=== PATIENT | male | born 1940 | race Hispanic/Latino ===

== ENCOUNTER 2017-02-24 16:19 | Inpatient (IN) | payer MEDICARE ==
--- NOTE | 2017-02-24 16:57 | ED PDOC ---
HPI: Psych/Substance Abuse Time Seen by Provider: 02/24/17 16:33 Chief Complaint (Nursing): Psychiatric Evaluation Chief Complaint (Provider): Psychiatric Evaluation History Per: Patient, Family (nephew) History/Exam Limitations: no limitations Onset/Duration Of Symptoms: Days (x1) Suicide/Self Injury Attempted (Context): None Associated Symptoms: denies: Suicidal Thoughts Additional Complaint(s): Kevin Corbett is a 76 year old male, with no past medical history, who was brought to the emergency department by EMS for psychiatric evaluation. Nephew states that the patient has been noncompliant with his medications, and for the past couple of days he has been hearing voices and acting bizarre. Patient denies any suicidal or homicidal ideations. No further medical complaints. PMD: Melvin Curtis Past Medical History Reviewed: Historical Data, Nursing Documentation, Vital Signs Vital Signs: Last Vital Signs Temp 97.4 F L 02/24/17 16:21 Pulse 91 H 02/24/17 16:21 Resp 16 02/24/17 16:21 BP 147/88 02/24/17 16:21 Pulse Ox 97 02/24/17 16:21 - Family History Family History: States: Unknown Family Hx - Allergies Allergies/Adverse Reactions: Allergies Allergy/AdvReac Type Severity Reaction Status Date / Time No Known Allergies Allergy Verified 06/23/14 16:38 Review of Systems ROS Statement: Except As Marked, All Systems Reviewed And Found Negative Neurological: Positive for: Altered Mental Status Psych: Positive for: Other (hearing voices). Negative for: Suicidal ideation ( or homicidal ideation) Physical Exam - Reviewed Nursing Documentation Reviewed: Yes Vital Signs Reviewed: Yes - Physical Exam Appears: Positive for: Well, Non-toxic, No Acute Distress Head Exam: Positive for: ATRAUMATIC, NORMAL INSPECTION, NORMOCEPHALIC Skin: Positive for: Normal Color, Warm, Dry Eye Exam: Positive for: EOMI, Normal appearance, PERRL Neck: Positive for: Normal, Painless ROM, Supple Cardiovascular/Chest: Positive for: Regular Rate, Rhythm. Negative for: Murmur Respiratory: Positive for: Normal Breath Sounds. Negative for: Respiratory Distress Gastrointestinal/Abdominal: Positive for: Normal Exam, Bowel Sounds, Soft. Negative for: Tenderness, Guarding, Rebound Back: Positive for: Normal Inspection (No midline tenderness). Negative for: L CVA Tenderness, R CVA Tenderness Extremity: Positive for: Normal ROM. Negative for: Pedal Edema, Deformity, Swelling Neurologic/Psych: Positive for: Alert, Oriented (x3 ), Mood/Affect (calm and cooperative) - Laboratory Results Result Diagrams: 02/24/17 17:14 02/24/17 17:14 - ECG Interpretation Of ECG: SR @ 82, 1st degree AVB. O2 Sat by Pulse Oximetry: 97 (RA) Pulse Ox Interpretation: Normal Medical Decision Making Medical Decision Making: Initial Impression: Psychiatric evaluation Initial Plan: --EKG --Alcohol Serum --Comp Metabolic Panel --Drug Screen, Urine --Valproic Acid --Urine Dipstick --CBC w/ differential --Chest Portable [RAD] --Urinalysis --reevaluation 1808 Chest x-ray FINDINGS: LUNGS: No active pulmonary disease. PLEURA: Stable right apical pleural thickening. CARDIOVASCULAR: No radiographic findings to suggest acute or significant cardiovascular disease. OSSEOUS STRUCTURES: No significant abnormalities. VISUALIZED UPPER ABDOMEN: Normal. OTHER FINDINGS: None. IMPRESSION: No active disease. No significant interval change compared to the prior examination(s). MEDICAL CLEARANCE: Pt medically cleared for psychiatric admission. Scribe Attestation: Documented by Akin Davis, acting as a scribe for Caron Barnett MD Provider Scribe Attestation: All medical record entries made by the Scribe were at my direction and personally dictated by me. I have reviewed the chart and agree that the record accurately reflects my personal performance of the history, physical exam, medical decision making, and the department course for this patient. I have also personally directed, reviewed, and agree with the discharge instructions and disposition. Disposition - Disposition Forms: [employer] (Turkish)
[2017-02-24 17:28] LABS: BASO % 0.9 % (0.0-2.0); EOS # 0.1 K/uL (0.0-0.7); EOS % 2.1 % (0.0-4.0); HEMATOCRIT 37.3 % (35.0-51.0); LYMPH # 0.6 K/uL (1.0-4.3); LYMPH % 11.4 % (20.0-40.0); MEAN CELL VOLUME 91.1 fl (80.0-94.0); MEAN CORPUSCULAR HEMOGLOBIN 30.2 pg (27.0-31.0); MEAN CORPUSCULAR HGB CONC 33.1 g/dL (33.0-37.0); MEAN PLATELET VOLUME 8.3 fl (7.2-11.7); MONO # 0.7 K/uL (0.0-0.8); MONO % 14.7 % (0.0-10.0); NEUT # 3.6 K/uL (1.8-7.0); NEUT % 70.9 % (50.0-75.0); NRBC % 0.1 % (0.0-0.0); RED CELL DISTRIBUTION WIDTH 13.7 % (11.5-14.5); WHITE BLOOD COUNT 5.1 K/uL (4.8-10.8)
[2017-02-24 17:37] LABS: ALB/GLOB RATIO 1.4 (1.0-2.1); ALCOHOL SERUM < 10 mg/dl (0-10); ALKALINE PHOSPHATASE 71 U/L (38-126); ALT/SGPT 21 U/L (21-72); AST/SGOT 34 U/L (17-59); BILIRUBIN,TOTAL 0.6 mg/dl (0.2-1.3); BLOOD UREA NITROGEN 19 mg/dl (9-20); CALCIUM 8.7 mg/dL (8.4-10.2); CARBON DIOXIDE 26 mmol/L (22-30); CHLORIDE 98 mmol/L (98-107); GFR AFRICAN-AMERICAN > 60; GLUCOSE,RANDOM 109 mg/dL (75-110); POTASSIUM 4.3 MMOL/L (3.6-5.0); SODIUM 134 mmol/l (132-148); TOTAL PROTEIN 7.5 G/DL (6.3-8.2)
[2017-02-24 18:09] LABS: RBC URINE 2 /hpf (0-3); URINE BACTERIA RARE (<OCC); URINE BILIRUBIN NEGATIVE (NEGATIVE); URINE BLOOD NEGATIVE (NEGATIVE); URINE COLOR YELLOW (YELLOW); URINE GLUCOSE (UA) NEG (Normal); URINE KETONE TRACE mg/dL (NEGATIVE); URINE LEUKOCYTE ESTERASE NEG Leu/uL (Negative); URINE PROTEIN NEGATIVE (NEGATIVE); URINE UROBILINOGEN 0.2-1.0 mg/dL (0.2-1.0); WBC URINE 1 /hpf (0-5)
--- NOTE | 2017-02-24 18:18 | RAD ---
HISTORY: Medical clearance . Technique: Single view portable semi erect @ 17:50. COMPARISON: 06/23/2014 FINDINGS: LUNGS: No active pulmonary disease. PLEURA: Stable right apical pleural thickening. CARDIOVASCULAR: No radiographic findings to suggest acute or significant cardiovascular disease. OSSEOUS STRUCTURES: No significant abnormalities. VISUALIZED UPPER ABDOMEN: Normal. OTHER FINDINGS: None. IMPRESSION: No active disease. No significant interval change compared to the prior examination(s).
--- NOTE | 2017-02-24 19:30 | ED PDOC ---
- Laboratory Results Result Diagrams: 02/24/17 17:14 02/24/17 17:14 - ECG O2 Sat by Pulse Oximetry: 97 (RA) Medical Decision Making Medical Decision Makin Patient endorsed to me by Dr. Barnett. Pending crisis evaluation. [address] Curtis 2044 -As per crisis patient will be admitted to psychiatric, diagnosed with schizophrenia to Dr. Ashley, psychiatrist. Dr. Curtis made aware. Disposition - Clinical Impression Clinical Impression: Psychiatric complaint - POA Present On Arrival: None - Disposition Disposition: Admitted as In-Patient Disposition Time: 20:00 Condition: STABLE
[2017-02-24] MEDS ORDERED: Magnesium Hydroxide Susp 30 ml UD PO PRN (22:18)
[2017-02-24] MEDS ORDERED: Bismuth Subsalicylate 262 mg/15 ml Sus (240 ml) PO PRN (22:18)
[2017-02-24] MEDS ORDERED: Alum-Mag Hydrox-Simethicone Susp (30 mL) PO PRN (22:18)
--- NOTE | 2017-02-25 01:21 | PCM.BM ---
<YiAreli Laureen - Last Filed: 02/25/17 01:20> Treatment Plan Problems - Problems identified on initial assessmt Auditory hallucination Date Initiated: 02/24/17 Time Initiated: 23:00 Assessment reference: NA Status: Active Treatment assets and liabiliti Patient Assests: adapts well, cooperative, good support system, negotiates basic needs, cognitively intact Patient Liabilities: medical problems - Milieu Protocol Maintain good personal hygiene: daily Encourage regular showers, daily Remind patient to perform daily oral care, daily Assist patient to perform ADL's Conduct patient checks and document Observation sheet: Q15 minutes Maintain personal safety: every shift Educate patient to report safety concerns to staff, every shift Monitor environment for contraband/sharps Medication safety: Monitor for expected outcome, potential side effects: every shift, Assess barriers to learning: every shift, Assess readiness for medication education: every shift <Maria Eugenia Nichols - Last Filed: 02/25/17 11:05> - Diagnosis (1) Schizophrenia Status: Acute Interventions: Psychotherapy, Psychopharmacology, Psychoeducation 02/25/17 11:05 <Cayla Obrien - Last Filed: 02/28/17 16:09> Family Contact Family involvement: Family/SO is involved Family contact comment: Pt's nephewBrandon is involve din pt's care; however, correct numbr for nephew is needed. The number we have on file is out of service. - Outside Agency Dr. Kirsten MD Care involvment: Information-sharing Agency contact name: Dr. Kirsten MD Agency contact number: [phone] - Goals for Treatment Patient goals for treatment: Pt to be encouraged to attend activity and clinical groups 3-5x per week to decrease symptoms of paranoia, delusions and employ reality testing. Pt to be encouraged to participate in group milieu to develop coping skills to reduce psychiatric hospitalizations and further decompensation. Coordinate discharge resources needs by providing referral for psychiatric treatment follow up in the community. Discharge/Continuing Care - Education Needs Education Needs: Family Medication, Family Diagnosis/Disease Process, Family Coping Skills, Family Placement options, Family Community resources, Family Activities of Daily Living, Family Nutrition, Family Uses of Medical Equipment, Family Health Practices/Safety, Family Personal Hygiene/Grooming, Family Aftercare Safety Plan, Patient Medication, Patient Diagnosis/Disease Process, Patient Coping Skills, Patient Placement options, Patient Community resources, Patient Activities of Daily Living, Patient Nutrition, Patient Uses of Medical Equipment, Patient Health Practices/Safety, Patient Personal Hygiene/Grooming, Patient Aftercare Safety Plan - Discharge Discharge Criteria: Tolerates medication w/o severe side effects, Free of paranoid thoughts, Normal sleep pattern, Ability to care for self, Reduction of target symptoms Discharge to:: Home, Retirement Facility, With Family - Additional Comments 02/28/17 16:03 Pt seen and discussed in team meeting. Pt reported mood "day to day." Pt denied any recent hallucinations. Pt's social and medical issues discussed. Pt's medications reviewed. Pt reported having a personal aid that goes to the house 1x a week t help him bathe. pt reported he wishes to go back home with his nephew. Pt reported that his nephew owns the house and lives on the first floor and he lives on the second floor. Display Trimmer discussed the possibility of pt applying for Medicaid benefits and pt refused. Pt reported "I rather not. I don' t need it." Display Trimmer explained that with Medicaid he would have access to more resources and care. Pt continues to refuse. Display Trimmer will discuss Medicaid application with nephew prior to discharge. RN advised to obtain nephew's contact information if he visits this evening. Display Trimmer will continue to follow up. Pt verbalized agreement to treatment plan and recommendations. - Treatment Team Participation Discussed with Family/SO: No Was Patient/Family/SO present at Treatment Team Meeting: Yes
[2017-02-25 05:36] VITALS: O2SAT 97
[2017-02-25 07:29] LABS: CHOLESTEROL 118 mg/dL (0-199)
[2017-02-25 07:49] LABS: T4 6.85 ug/dl (5.5-11.0)
[2017-02-25 08:03] LABS: THYROID STIMULATING HORMONE 0.76 mIU/ML (0.46-4.68)
--- NOTE | 2017-02-25 08:12 | CARD ---
APPROVED REPORT EKG Measurement Heart [id number] <Conclusion> Sinus rhythm with 1st degree AV block Otherwise normal ECG
--- NOTE | 2017-02-25 10:38 | PCM.PSYCH ---
Initial Psychiatric Evaluation - Initial Psychiatric Evaluation Type of Admission: Voluntary Legal Status: Capacity Chief Complaint (in patient's own words): "I need my medications" Patient's Reaction to Hospitalization: HPI: 76 yo male w/ history of schizoaffective disorder, referred by his family for visual hallucinations and increased agitation. Patient is a poor historian and was unable to state which medications he takes. He denies current hallucinations, delusions, paranoia, but did report that he has heard voices in the past, but was unable to state when. Patient admitted to having visual hallucinations in the ER, but now denies this. NO SI/HI. Denies currently feeling depressed or anxious. As per family, patient has been non- compliant with medications. PMHx: Parkinson's Disease PMD: Melvin Curtis PPHx: Patient reports that he was first admitted for schizophrenia at age 22 and reports a total of 3 psychiatric admissions. History of outpatient treatment w/ Dr. England, not currently compliant. SHx: Finished 12th grade, reports that he did not work extensively due to his history of chronic mental illness. Denies illicit drug use and ETOH use. Current Medications: Active Medications Generic Name Dose Route Start Last Admin Trade Name Freq PRN Reason Stop Dose Admin Acetaminophen 650 mg 02/24/17 22:18 Tylenol 325mg Tab PO Q4 PRN Pain, moderate (4-7) Al Hydrox/Mg Hydrox/Simethicone 30 ml 02/24/17 22:18 Maalox Plus 30 Ml PO Q4 PRN Dyspepsia Aspirin 81 mg 02/25/17 09:00 02/25/17 08:52 Aspirin Chewable PO 81 mg DAILY PETE Administration Atorvastatin Calcium 10 mg 02/25/17 09:00 02/25/17 08:51 Lipitor PO 10 mg DAILY PETE Administration Bismuth Subsalicylate 524 mg 02/24/17 22:18 Pepto-Bismol PO Q4 PRN Diarrhea Carbidopa/Levodopa 1 tab 02/25/17 09:00 02/25/17 08:51 Sinemet PO 1 tab TID PETE Administration Famotidine 20 mg 02/25/17 09:00 02/25/17 08:51 Pepcid PO 20 mg DAILY PETE Administration Lorazepam 0.5 mg 02/24/17 22:18 Ativan PO 03/10/17 22:19 HS PRN Insomnia Lorazepam 0.5 mg 02/24/17 22:18 Ativan PO 03/10/17 22:19 Q6 PRN Anixety/Agitation Magnesium Hydroxide 30 ml 02/24/17 22:18 Milk Of Magnesia PO HS PRN Constipation Past Psychiatric History - Past Psychiatric History Previous Treatment History: Inpatient Pertinent Medical Hx (Current Medical&Sleep Prob, Allergies): Allergies Allergy/AdvReac Type Severity Reaction Status Date / Time No Known Allergies Allergy Verified 06/23/14 16:38 Aspirin [Aspirin Chewable] 81 mg PO DAILY 02/24/17 Atorvastatin [Lipitor] 10 mg PO DAILY 02/24/17 Carbidopa/Levodopa [Carbidopa-Levodopa 25-100 Tab] 1 tab PO TID 02/24/17 Citalopram Hydrobromide [Citalopram HBr] 10 mg PO DAILY 02/24/17 Divalproex Sodium [Divalproex Sodium ER] 125 mg PO BID 02/24/17 Famotidine [Pepcid] 20 mg PO DAILY 02/24/17 Review of Systems - Psychiatric Psychiatric: As Per HPI, Auditory Hallucinations, Behavioral Changes, Hallucinations, Irritability, Memory Loss, Visual Hallucinations Mental Status Examination - Personal Presentation Personal Presentation: Looks stated age - Affect Affect: Constricted - Motor Activity Motor Activity: Calm - Reliability in Providing Information Reliability in Providing Information: Other (Poor due to alteration in thoughts and/or cognitive impairment) - Speech Speech: Coherent - Mood Mood: Anxious - Formal Thought Process Formal Thought Process: Loosening of associations - Hallucinations/Delusions Additional comments: Denies current AH/VH, but as per chart, patient reported VH to ER and AH to family - Obsessions/Compulsions Obsessions: No Compulsions: No - Cognitive Functions Orientation: Person, Place, Situation, Time Sensorium: Alert Judgement: Intact, as evidence by: Insight regarding need for hospitalization Memory: Recent imparied as evidence by:Inability to complete 3/3 object recall, Remote impaired as evidenced by: Inability to recall sig life events, Remote impaired as evidenced by: Inability to recall historical events - Risk Risk: Diminished functioning - Strength & Assets Inventory Strength & Assets Inventory: Cooperative - Limitations Limitations: Decreased memory, recent DSM 5 DX - DSM 5 DSM 5 Diagnosis: Schizophrenia; r/o dementia w/ behavioral disturbances - Recommended/Plan of Treatment Treatment Recommendations and Plan of Treatment: Schizophrenia; r/o dementia w/ behavioral disturbances; patient presents acutely decompensated in the context of non-compliance w/ medications -Admit to geriatric psychiatry unit -Individual and group therapy -Obtain collateral history from family -Medicine consult appreciated -Restart Depakote 125 mg PO BID, patient was non-complaint at home -Will consider starting Seroquel, pending Cardiology consult -Disposition planning Projected ELOS: 5-7 days Discharge Plan and Discharge Criteria: Discharge when psychiatrically stable - Smoking Cessation Smoking Cessation Initiated: No Reason for not providing: Not indicated
[2017-02-25 12:14] LABS: VITAMIN D 25 OH TOTAL 28.5 NG/ML (30.0-100.0)
[2017-02-25 13:04] LABS: FOLATE > 20.0 ng/mL
--- NOTE | 2017-02-25 14:31 | CP.PCM.CON ---
History of Present Illness - History of Present Illness History of Present Illness: Internal Medicine Consult 76 y/o M, Hx of HTN, Hyperlipidemia, E Reflux, Parkinson's ,Schizophrenia brought by EMS to [facility] to be evaluated for behavioral changes, onset day [employer] with no relief. After evaluation, PT was admitted to Psychiatric unit. As per Nephew, He found Pt acting bizarre while at home associated to agitation and allucinations, hearing voices telling him you are going to . Pt denied SI ,HI. Worsening symptom: Dementia. Aggravated factor: Poor historian, no compliance with medications. Denied: SI, HI. No: Fever, chills, n/v/d, abdominal pain, CP, palpitation, SOB , cough, sick contact, recent travel. EKG: Sinus rhythm with 1st degree of AV block. Review of Systems - Review of Systems Systems not reviewed;Unavailable: Acuity of Condition, Altered Mental Status Past Patient History - Infectious Disease Hx of Infectious Diseases: None - Past Medical History & Family History Pertinent Family History: Unknown - Past Social History Smoking Status: Never Smoked Alcohol: None Drugs: Denies Home Situation {Lives}: Alone - CARDIAC Hx Cardiac Disorders: Yes Hx Hypertension: Yes - PULMONARY Hx Respiratory Disorders: No - NEUROLOGICAL Hx Neurological Disorder: Yes Hx Parkinson's Disease: Yes - HEENT Hx HEENT Problems: Yes Other/Comment: uses bifocal glasses - RENAL Hx Chronic Kidney Disease: No - ENDOCRINE/METABOLIC Hx Endocrine Disorders: No - HEMATOLOGICAL/ONCOLOGICAL Hx Blood Disorders: No - INTEGUMENTARY Hx Dermatological Problems: No - MUSCULOSKELETAL/RHEUMATOLOGICAL Hx Musculoskeletal Disorders: Yes Hx Falls: Yes - GASTROINTESTINAL Hx Gastrointestinal Disorders: Yes Hx Gastroesophageal Reflux: Yes - GENITOURINARY/GYNECOLOGICAL Hx Genitourinary Disorders: Yes Other/Comment: swollen scrotum - PSYCHIATRIC Hx Psychophysiologic Disorder: Yes Hx Depression: Yes Hx Schizophrenia: Yes Hx Substance Use: No - SURGICAL HISTORY Hx Surgeries: No - ANESTHESIA Hx Anesthesia: No Meds Home Medications: Home Medication List Medication Instructions Recorded Confirmed Type Aspirin [Aspirin Chewable] 81 mg PO DAILY #30 chew 03/01/17 Rx Atorvastatin [Lipitor] 10 mg PO DAILY #30 tab 03/01/17 Rx Carbidopa/Levodopa 1 tab PO TID #90 tablet 03/01/17 Rx [Carbidopa-Levodopa 25-100 Tab] Divalproex [Depakote DR(*BID*)] 125 mg PO BID #60 tcp 03/01/17 Rx Famotidine [Pepcid] 20 mg PO DAILY #30 tab 03/01/17 Rx QUEtiapine [Seroquel] 25 mg PO HS #30 tab 03/01/17 Rx Allergies/Adverse Reactions: Allergies Allergy/AdvReac Type Severity Reaction Status Date / Time No Known Allergies Allergy Verified 06/23/14 16:38 - Medications Medications: Current Medications Acetaminophen (Tylenol 325mg Tab) 650 mg PO Q4 PRN PRN Reason: Pain, moderate (4-7) Al Hydrox/Mg Hydrox/Simethicone (Maalox Plus 30 Ml) 30 ml PO Q4 PRN PRN Reason: Dyspepsia Aspirin (Aspirin Chewable) 81 mg PO DAILY [facility] Last Admin: 02/25/17 08:52 Dose: 81 mg Atorvastatin Calcium (Lipitor) 10 mg PO DAILY [facility] Last Admin: 02/25/17 08:51 Dose: 10 mg Bismuth Subsalicylate (Pepto-Bismol) 524 mg PO Q4 PRN PRN Reason: Diarrhea Carbidopa/Levodopa (Sinemet) 1 tab PO TID [facility] Last Admin: 02/25/17 13:03 Dose: 1 tab Famotidine (Pepcid) 20 mg PO DAILY [facility] Last Admin: 02/25/17 08:51 Dose: 20 mg Lorazepam (Ativan) 0.5 mg PO HS PRN PRN Reason: Insomnia Stop: 03/10/17 22:19 Lorazepam (Ativan) 0.5 mg PO Q6 PRN PRN Reason: Anixety/Agitation Stop: 03/10/17 22:19 Magnesium Hydroxide (Milk Of Magnesia) 30 ml PO HS PRN PRN Reason: Constipation Physical Exam - Constitutional Appears: Chronically Ill - Head Exam Head Exam: NORMAL INSPECTION - Eye Exam Eye Exam: PERRL - ENT Exam ENT Exam: Normal Exam - Neck Exam Neck exam: Positive for: Normal Inspection - Respiratory Exam Respiratory Exam: Clear to Auscultation Bilateral - Cardiovascular Exam Cardiovascular Exam: REGULAR RHYTHM - GI/Abdominal Exam GI & Abdominal Exam: Normal Bowel Sounds, Soft - Extremities Exam Extremities exam: Positive for: normal inspection - Back Exam Additional comments: kyphosis - Neurological Exam Additional comments: Confused, forgetful, follows commands , no focal motor / sensory deficit , weakness L/E - Psychiatric Exam Additional comments: Calm now - Skin Skin Exam: Warm Results - Vital Signs Recent Vital Signs: Last Vital Signs Temp 98.1 F 02/25/17 05:48 Pulse 76 02/25/17 05:48 Resp 18 02/25/17 05:48 BP 146/76 02/25/17 05:48 Pulse Ox 97 02/25/17 05:36 reviewed Merary - Labs Result Diagrams: 02/24/17 17:14 02/24/17 17:14 Labs: Laboratory Results - last 24 hr 02/24/17 02/24/17 02/24/17 17:14 17:14 17:14 WBC 5.1 RBC 4.09 L Hgb 12.3 Hct 37.3 MCV 91.1 MCH 30.2 MCHC 33.1 RDW 13.7 Plt Count 203 MPV 8.3 Neut % (Auto) 70.9 Lymph % (Auto) 11.4 L [place] % (Auto) 14.7 H Eos % (Auto) 2.1 Baso % (Auto) 0.9 Neut # 3.6 Lymph # 0.6 L [place] # 0.7 Eos # 0.1 Baso # 0.0 Sodium 134 Potassium 4.3 Chloride 98 Carbon Dioxide 26 Anion Gap 14 BUN 19 Creatinine 1.0 Est GFR ( Amer) > 60 Est GFR (Non-Af Amer) > 60 Random Glucose 109 Hemoglobin A1c Calcium 8.7 Iron TIBC % Saturation Ferritin Total Bilirubin 0.6 AST 34 ALT 21 D Alkaline Phosphatase 71 Total Protein 7.5 Albumin 4.4 Globulin 3.1 Albumin/Globulin Ratio 1.4 Triglycerides Cholesterol LDL Cholesterol Direct HDL Cholesterol Vitamin B12 25-OH Vitamin D Total Folate Free T4 Thyroxine (T4) TSH 3rd Generation Urine Color Urine Clarity Urine pH Ur Specific [place] Urine Protein Urine Glucose (UA) Urine Ketones Urine Blood Urine Nitrate Urine Bilirubin Urine Urobilinogen Ur Leukocyte Esterase Urine RBC (Auto) Urine Microscopic WBC Urine Bacteria Urine Opiates Screen Urine Methadone Screen Ur Barbiturates Screen Valproic Acid 24.6 L Ur Phencyclidine Scrn Ur Amphetamines Screen U Benzodiazepines Scrn U Oth Cocaine Metabols U Cannabinoids Screen Alcohol, Quantitative < 10 02/24/17 02/24/17 02/25/17 17:50 19:44 06:10 WBC RBC Hgb Hct MCV MCH MCHC RDW Plt Count MPV Neut % (Auto) Lymph % (Auto) [place] % (Auto) Eos % (Auto) Baso % (Auto) Neut # Lymph # [place] # Eos # Baso # Sodium Potassium Chloride Carbon Dioxide Anion Gap BUN Creatinine Est GFR ( Amer) Est GFR (Non-Af Amer) Random Glucose Hemoglobin A1c Calcium Iron TIBC % Saturation Ferritin 33.7 Total Bilirubin AST ALT Alkaline Phosphatase Total Protein Albumin Globulin Albumin/Globulin Ratio Triglycerides 46 Cholesterol 118 LDL Cholesterol Direct 44 HDL Cholesterol 55 Vitamin B12 789 25-OH Vitamin D Total Folate > 20.0 Free T4 Thyroxine (T4) 6.85 TSH 3rd Generation 0.76 Urine Color Yellow Urine Clarity Slighty-cloudy Urine pH 6.0 Ur Specific [place] 1.014 Urine Protein Negative Urine Glucose (UA) Neg Urine Ketones Trace Urine Blood Negative Urine Nitrate Negative Urine Bilirubin Negative Urine Urobilinogen 0.2-1.0 Ur Leukocyte Esterase Neg Urine RBC (Auto) 2 Urine Microscopic WBC 1 Urine Bacteria Rare Urine Opiates Screen Negative Urine Methadone Screen Negative Ur Barbiturates Screen Negative Valproic Acid Ur Phencyclidine Scrn Negative Ur Amphetamines Screen Negative U Benzodiazepines Scrn Negative U Oth Cocaine Metabols Negative U Cannabinoids Screen Negative Alcohol, Quantitative 02/25/17 02/25/17 02/25/17 06:10 06:10 06:10 WBC RBC Hgb Hct MCV MCH MCHC RDW Plt Count MPV Neut % (Auto) Lymph % (Auto) [place] % (Auto) Eos % (Auto) Baso % (Auto) Neut # Lymph # [place] # Eos # Baso # Sodium Potassium Chloride Carbon Dioxide Anion Gap BUN Creatinine Est GFR ( Amer) Est GFR (Non-Af Amer) Random Glucose Hemoglobin A1c 5.4 Calcium Iron 89 TIBC 335 % Saturation 27 Ferritin Total Bilirubin AST ALT Alkaline Phosphatase Total Protein Albumin Globulin Albumin/Globulin Ratio Triglycerides Cholesterol LDL Cholesterol Direct HDL Cholesterol Vitamin B12 25-OH Vitamin D Total 28.5 L Folate Free T4 0.79 Thyroxine (T4) TSH 3rd Generation Urine Color Urine Clarity Urine pH Ur Specific [place] Urine Protein Urine Glucose (UA) Urine Ketones Urine Blood Urine Nitrate Urine Bilirubin Urine Urobilinogen Ur Leukocyte Esterase Urine RBC (Auto) Urine Microscopic WBC Urine Bacteria Urine Opiates Screen Urine Methadone Screen Ur Barbiturates Screen Valproic Acid Ur Phencyclidine Scrn Ur Amphetamines Screen U Benzodiazepines Scrn U Oth Cocaine Metabols U Cannabinoids Screen Alcohol, Quantitative reviewed J.P. - EKG Data EKG comments: reviewed J.P. - Imaging and Cardiology Chest x-ray Status: Report reviewed by me (Merary) Assessment & Plan (1) Heart block AV first degree Status: Acute (2) Hyperlipidemia Status: Chronic Priority: Low (3) HTN (hypertension) Status: Chronic Priority: Medium (4) Esophageal reflux Status: Chronic Priority: Medium (5) High cholesterol Status: Chronic (6) Parkinson disease Status: Chronic - Assessment and Plan (Free Text) Plan: Pt [id number] degree AV block, will get Echo and Cardiology consult for starting in Soroquel, monitor BP. Continue Lipitor, Pepcid and rest of Tx. PT.OT - Date & Time Date: 02/25/17
[2017-02-25] MEDS ORDERED: Divalproex 250 mg ER (ONCE DAILY formulation) PO ONE (17:00)
[2017-02-26] MEDS: Divalproex 125 mg DR (BID formulation) PO SCH ×2 (08:45→16:22)
--- NOTE | 2017-02-26 10:53 | PCM.PYCHPN ---
Psychiatric Progress Note - Psychiatric Progress Note Patient seen today, length of contact: Patient evaluated, case discussed with team, chart reviewed, 35 min Patient Chief Complaint: "I'm okay" Problems Identified/Issues Discussed: Patient currently calm, cooperative, sitting quietly in his chair. Patient encouraged to participate in groups and activities. No periods of agitation or aggression. He is denying current AH/VH. Medication Change: No Medical Record Reviewed: Yes Consults ordered or reviewed: Medicine consult appreciated, Cardiology consult pending Mental Status Examination - Cognitive Function Orientation: Person, Place, Situation, Time Memory: Impaired Decription of patient's judgement and insights: Limited I/J - Mood Mood: Anxious - Affect Affect: Constricted - Speech Speech: Appropriate - Formal Thought Process Formal Thought Process: Loosening of associations Psychotic Thoughts and Behaviors: Denies current AH/VH/paranoia - Suicidal Ideation Suicidal Ideation: No - Homicidal Ideation Homicidal Ideation: No Goal/Treatment Plan - Goal/Treatment Plan Need for Continued Stay: Remain at risks for inpatient hospitalization, Severe functional impairment Progress Toward Problem(s) and Goals/Treatment Plan: Schizophrenia; r/o dementia w/ behavioral disturbances; patient presents acutely decompensated in the context of non-compliance w/ medications -Individual and group therapy -Obtain collateral history from family -Medicine consult appreciated -Continue Depakote 125 mg PO BID -Will consider starting Seroquel, pending Cardiology consult -Disposition planning Estimated Date of D/C: 03/02/17 - Smoking Cessation Smoking Cessation Initiated: No Reason for not providing: Not indicated
--- NOTE | 2017-02-26 14:16 | CP.PCM.PN ---
Subjective - Date & Time of Evaluation Date of Evaluation: 02/26/17 Time of Evaluation: 13:30 - Subjective Subjective: F/U Medical consult. No A/D, Pt forgetful Objective - Vital Signs/Intake and Output Vital Signs (last 24 hours): Temp Pulse Resp BP Pulse Ox 97.1 F L 72 20 144/78 97 02/26/17 06:00 02/26/17 06:00 02/26/17 06:00 02/26/17 06:00 02/25/17 05:36 - Medications Medications: Current Medications Acetaminophen (Tylenol 325mg Tab) 650 mg PO Q4 PRN PRN Reason: Pain, moderate (4-7) Al Hydrox/Mg Hydrox/Simethicone (Maalox Plus 30 Ml) 30 ml PO Q4 PRN PRN Reason: Dyspepsia Aspirin (Aspirin Chewable) 81 mg PO DAILY [facility] Last Admin: 02/26/17 08:45 Dose: 81 mg Atorvastatin Calcium (Lipitor) 10 mg PO DAILY [facility] Last Admin: 02/26/17 08:45 Dose: 10 mg Bismuth Subsalicylate (Pepto-Bismol) 524 mg PO Q4 PRN PRN Reason: Diarrhea Carbidopa/Levodopa (Sinemet) 1 tab PO TID [facility] Last Admin: 02/26/17 08:45 Dose: 1 tab Divalproex Sodium (Depakote Dr(*Bid*)) 125 mg PO BID [facility] Last Admin: 02/26/17 08:45 Dose: 125 mg Famotidine (Pepcid) 20 mg PO DAILY [facility] Last Admin: 02/26/17 08:45 Dose: 20 mg Lorazepam (Ativan) 0.5 mg PO HS PRN PRN Reason: Insomnia Stop: 03/10/17 22:19 Lorazepam (Ativan) 0.5 mg PO Q6 PRN PRN Reason: Anixety/Agitation Stop: 03/10/17 22:19 Magnesium Hydroxide (Milk Of Magnesia) 30 ml PO HS PRN PRN Reason: Constipation - Labs Labs: 02/24/17 17:14 02/24/17 17:14 - Constitutional Appears: No Acute Distress, Chronically Ill - Head Exam Head Exam: NORMAL INSPECTION - Eye Exam Eye Exam: PERRL - ENT Exam ENT Exam: Normal Exam - Neck Exam Neck Exam: Normal Inspection - Respiratory Exam Respiratory Exam: Clear to Ausculation Bilateral - Cardiovascular Exam Cardiovascular Exam: REGULAR RHYTHM - Extremities Exam Extremities Exam: Normal Inspection - Back Exam Additional comments: Kyphosis - Neurological Exam Neurological Exam: Awake (cofuse, forgetful, follows commands.) Additional comments: No focal motor/ sensory deficit, weakness L/E. - Psychiatric Exam Additional comments: Calm. - Skin Skin Exam: Warm Assessment and Plan (1) Hyperlipidemia Status: Chronic (2) Esophageal reflux Status: Chronic (3) HTN (hypertension) Status: Chronic (4) Heart block AV first degree Status: Acute (5) Parkinson disease Status: Chronic (6) GERD (gastroesophageal reflux disease) Status: Chronic - Assessment and Plan (Free Text) Plan: HTN controlled, f/u Cardiology consult
--- NOTE | 2017-02-26 14:19 | CP.PCM.CON ---
History of Present Illness - History of Present Illness History of Present Illness: PT DENIES CP, SOB, PALP, DIZZINESS, SYNCOPE. NO HX OF TN OR ARRYTHMIAS. PT HAS A 1ST DEGREE HEART BLOCK ON ECG AND IS SCHEDULED FOR ANTIPSYCHOTIC THERAPY. CONSULT PLACED TO EVAL 1ST DEGREE HB AND CONTRAINDICATION FOR THERAPY. Review of Systems - Constitutional Constitutional: As Per HPI. absent: Anorexia, Chills, Daytime Sleepiness, Excessive Sweating, Fatigue, Fever, Frequent Falls, Headache, Increased Appetite , Lethargy, Malaise, Night Sweats, Snoring, Sleep Apnea, Weight Gain, Weight Loss, Weakness, Other - EENT Eyes: As Per HPI. absent: Blind Spots, Blurred Vision, Change in Vision, Decreased Night Vision, Diplopia, Discharge, Dry Eye, Exophthalmos, Floaters, Irritation, Itchy Eyes, Loss of Peripheral Vision, Pain, Photophobia, Requires Corrective Lenses, Sees Flashes, Spots in Vision, Tunnel Vision, Other Visual Disturbances, Loss of Vision, Other Ears: As Per HPI. absent: Decreased Hearing, Ear Discharge, Ear Pain, Tinnitus , Abnormal Hearing, Disequilibrium, Dizziness, Other Nose/Mouth/Throat: As Per HPI. absent: Epistaxis, Nasal Congestion, Nasal Discharge, Nasal Obstruction, Nasal Trauma, Nose Pain, Post Nasal Drip, Sinus Pain, Sinus Pressure, Bleeding Gums, Change in Voice, Dental Pain, Dry Mouth, Dysphagia, Halitosis, Hoarsness, Lip Swelling, Mouth Lesions, Mouth Pain, Odynophagia, Sore Throat, Throat Swelling, Tongue Swelling, Facial Pain, Neck Pain, Neck Mass, Other - Cardiovascular Cardiovascular: As Per HPI. absent: Acrocyanosis, Chest Pain, Chest Pain at Rest, Chest Pain with Activity, Claudication, Diaphoresis, Dyspnea, Dyspnea on Exertion, Edema, Irregular Heart Rhythm, Pain Radiating to Arm/Neck/Jaw, Leg Edema, Leg Ulcers, Lightheadedness, Orthopnea, Palpitations, Paroxysmal Nocturnal Dyspnea, Pedal Edema, Radiating Pain, Rapid Heart Rate, Slow Heart Rate, Syncope, Other - Respiratory Respiratory: As Per HPI. absent: Cough, Dyspnea, Hemoptysis, Dyspnea on Exertion, Wheezing, Snoring, Stridor, Pain on Inspiration, Chest Congestion, Excessive Mucous Production, Change in Mucous Color, Pain with Coughing, Other - Gastrointestinal Gastrointestinal: As Per HPI. absent: Abdominal Pain, Belching, Bloating, Change in Bowel Habits, Change in Stool Character, Coffee Ground Emesis, Constipation, Cramping, Diarrhea, Dyspepsia, Dysphagia, Early Satiety, Excessive Flatus, Fecal Incontinence, Heartburn, Hematemesis, Hematochezia, Loose Stools, Melena, Nausea, Odynophagia, Temesmus, Vomiting, Other - Genitourinary Genitourinary: As Per HPI. absent: Change in Urinary Stream, Difficulty Urinating, Dysuria, Flank Pain, Hematuria, Pyuria, Nocturia, Urinary Incontinence, Urinary Frequency, Urinary Hesitance, Urinary Urgency, Voiding Freq/Small Amts, Freq UTI, Hx Renal/Bladder Calculi, Hx /Renal Surgery, Bladder Distension, Other - Reproductive: Male Reproductive:Male: As Per HPI - Musculoskeletal Musculoskeletal: As Per HPI. absent: Abnormal Gait, Arthralgias, Atrophy, Back Pain, Deformity, Joint Swelling, Limited Range of Motion, Loss of Height, Muscle Cramps, Muscle Weakness, Myalgias, Neck Pain, Numbness, Radiating Pain into Limb, Stiffness, Tingling, Other - Integumentary Integumentary: As Per HPI. absent: Acne, Alopecia, Bleeding Lesions, Change in Hair, Change in Nails, Change in Pigmentation, Changing Lesions, Dry Skin, Erythema, Furuncle, Hirsutism, Lesions, New Lesions, Non-Healing Lesions, Photosensitivity, Pruritus, Rash, Skin Pain, Skin Ulcer, Sores, Striae, Swelling , Unusual Bruising, Wounds, Jaundice, Other - Neurological Neurological: As Per HPI. absent: Abnormal Gait, Abnormal Hearing, Abnormal Movements, Abnormal Speech, Behavioral Changes, Burning Sensations, Confusion, Convulsions, Disequilibrium, Dizziness, Numbness, Focal Weakness, Frequent Falls , Headaches, Lack of Coordination, Loss of Vision, Memory Loss, Paresthesias, Radicular Pain, Restless Legs, Sensory Deficit, Syncope, Tingling, Tremor, Vertigo, Weakness, Other Visual Disturbances, Other - Psychiatric Psychiatric: As Per HPI, Behavioral Changes - Endocrine Endocrine: As Per HPI. absent: Change in Body Appearance, Change in Libido, Cold Intolorance, Deepening of Voice, Excessive Sweating, Fatigue, Flushing, Heat Intolorance, Increase in Ring/Shoe/Hat Size, Palpitations, Polydipsia, Polyphagia, Polyuria, Other - Hematologic/Lymphatic Hematologic: As Per HPI. absent: Easy Bleeding, Easy Bruising, Lymphadenopathy , Other Past Patient History - Infectious Disease Hx of Infectious Diseases: None - Tetanus Immunizations Tetanus Immunization: Up to Date - Past Medical History & Family History Past Medical History?: Yes Past Family History: Reviewed and not pertinent - Past Social History Smoking Status: Never Smoked Alcohol: None Drugs: Denies Home Situation {Lives}: Alone - CARDIAC Hx Cardiac Disorders: Yes Hx Hypertension: Yes - PULMONARY Hx Respiratory Disorders: No - NEUROLOGICAL Hx Neurological Disorder: Yes Hx Parkinson's Disease: Yes - HEENT Hx HEENT Problems: Yes Other/Comment: uses bifocal glasses - RENAL Hx Chronic Kidney Disease: No - ENDOCRINE/METABOLIC Hx Endocrine Disorders: No - HEMATOLOGICAL/ONCOLOGICAL Hx Blood Disorders: No - INTEGUMENTARY Hx Dermatological Problems: No - MUSCULOSKELETAL/RHEUMATOLOGICAL Hx Musculoskeletal Disorders: Yes Hx Falls: Yes - GASTROINTESTINAL Hx Gastrointestinal Disorders: Yes Hx Gastroesophageal Reflux: Yes - GENITOURINARY/GYNECOLOGICAL Hx Genitourinary Disorders: Yes Other/Comment: swollen scrotum - PSYCHIATRIC Hx Psychophysiologic Disorder: Yes Hx Depression: Yes Hx Schizophrenia: Yes Hx Substance Use: No - SURGICAL HISTORY Hx Surgeries: No - ANESTHESIA Hx Anesthesia: No Meds Allergies/Adverse Reactions: Allergies Allergy/AdvReac Type Severity Reaction Status Date / Time No Known Allergies Allergy Verified 06/23/14 16:38 - Medications Medications: Current Medications Acetaminophen (Tylenol 325mg Tab) 650 mg PO Q4 PRN PRN Reason: Pain, moderate (4-7) Al Hydrox/Mg Hydrox/Simethicone (Maalox Plus 30 Ml) 30 ml PO Q4 PRN PRN Reason: Dyspepsia Aspirin (Aspirin Chewable) 81 mg PO DAILY [facility] [place] Last Admin: 02/26/17 08:45 Dose: 81 mg Atorvastatin Calcium (Lipitor) 10 mg PO DAILY [facility] [place] Last Admin: 02/26/17 08:45 Dose: 10 mg Bismuth Subsalicylate (Pepto-Bismol) 524 mg PO Q4 PRN PRN Reason: Diarrhea Carbidopa/Levodopa (Sinemet) 1 tab PO TID [facility] [place] Last Admin: 02/26/17 08:45 Dose: 1 tab Divalproex Sodium (Depakote Dr(*Bid*)) 125 mg PO BID [facility] [place] Last Admin: 02/26/17 08:45 Dose: 125 mg Famotidine (Pepcid) 20 mg PO DAILY [facility] Last Admin: 02/26/17 08:45 Dose: 20 mg Lorazepam (Ativan) 0.5 mg PO HS PRN PRN Reason: Insomnia Stop: 03/10/17 22:19 Lorazepam (Ativan) 0.5 mg PO Q6 PRN PRN Reason: Anixety/Agitation Stop: 03/10/17 22:19 Magnesium Hydroxide (Milk Of Magnesia) 30 ml PO HS PRN PRN Reason: Constipation Physical Exam - Constitutional Appears: Non-toxic - Head Exam Head Exam: ATRAUMATIC, NORMAL INSPECTION, NORMOCEPHALIC - Eye Exam Eye Exam: EOMI, Normal appearance, PERRL. absent: Conjunctival injection, Nystagmus, Periorbital swelling, Periorbital tenderness, Scleral icterus Pupil Exam: NORMAL ACCOMODATION, PERRL. absent: Fixed, Irregular, Miosis, Mydriatic, Unequal - ENT Exam ENT Exam: Mucous Membranes Moist, Normal Exam. absent: Mucous Membranes Dry, Normal External Ear Exam, Normal Oropharynx, TM's Normal Bilaterally - Neck Exam Neck exam: Positive for: Normal Inspection. Negative for: Full Rom, Lymphadenopathy, Meningismus, Tenderness, Thyromegaly - Respiratory Exam Respiratory Exam: Clear to Auscultation Bilateral, NORMAL BREATHING PATTERN. absent: Accessory Muscle Use, Chest Wall Tenderness, Decreased Breath Sounds, Prolonged Expiratory Phase, Rales, Rhonchi, Wheezes, Respiratory Distress, Stridor - Cardiovascular Exam Cardiovascular Exam: REGULAR RHYTHM, +S1, +S2, Systolic Murmur. absent: Bradycardia, Tachycardia, Clicks, Diastolic murmur, Gallop, Irregular Rhythm, JVD, RRR, Rubs, +S4 - GI/Abdominal Exam GI & Abdominal Exam: Normal Bowel Sounds, Soft. absent: Bruit, Diminished Bowel Sounds, Distended, Firm, Guarding, Hernia, Hyperactive Bowel Sounds, Hypoactive Bowel Sounds, Mass, Organomegaly, Pulsatile Mass, Rebound, Rigid, Tenderness - Rectal Exam Rectal Exam: Deferred - Extremities Exam Extremities exam: Positive for: normal inspection. Negative for: calf tenderness, full ROM, joint swelling, normal capillary refill, pedal edema, tenderness, pedal pulses present - Back Exam Back exam: NORMAL INSPECTION. absent: CVA tenderness (L), CVA tenderness (R), FULL ROM, muscle spasm, paraspinal tenderness, rash noted, tenderness, vertebral tenderness - Neurological Exam Neurological exam: Alert, CN II-XII Intact, Normal Gait, Oriented x3, Reflexes Normal - Skin Skin Exam: Dry, Intact, Normal Color, Warm Results - Vital Signs Recent Vital Signs: Last Vital Signs Temp 97.1 F L 02/26/17 06:00 Pulse 72 02/26/17 06:00 Resp 20 02/26/17 06:00 BP 144/78 02/26/17 06:00 Pulse Ox 97 02/25/17 05:36 - Labs Result Diagrams: 02/24/17 17:14 02/24/17 17:14 Labs: Laboratory Results - last 24 hr 02/25/17 06:10 RPR Nonreactive - EKG Data EKG Interpreted by: Myself EKG shows normal: Sinus rhythm, Intervals Rate: Normal - EKG Data Interpretation: Other EKG comments: 1ST DEGREE HEART BLOCK Assessment & Plan (1) Heart block AV first degree Status: Acute (2) Psychiatric complaint Status: Acute (3) Esophageal reflux Status: Chronic Priority: Medium (4) HTN (hypertension) Status: Chronic Priority: Medium (5) Hyperlipidemia Status: Chronic Priority: Low - Assessment and Plan (Free Text) Plan: PTS 1ST DEGREE HEART BLOCK IS NOT A CONTRAINDICATION TO ANTIPSYCHOTIC MEDS. MAY START MEDICATIONS. MONITOR ECG QWEEKLY. ECHO DONE AND PENDING. WILL SIGN OFF. THANK YOU. FEEL FREE TO CALL WITH ANY QUESTIONS.
--- NOTE | 2017-02-27 08:13 | PCM.PYCHPN ---
Psychiatric Progress Note - Psychiatric Progress Note Patient seen today, length of contact: Patient evaluated, case discussed with team, chart reviewed, 35 min Patient Chief Complaint: "I'm okay" Problems Identified/Issues Discussed: Patient currently calm, cooperative. No periods of agitation or aggression. He is denying current AH/VH, but reports that sometimes he hears people talking , but is not sure if they are staff talking in the hallway. Medication Change: No Medical Record Reviewed: Yes Consults ordered or reviewed: Medicine consult appreciated, Cardiology consult pending Mental Status Examination - Cognitive Function Orientation: Person, Place, Situation Memory: Impaired Decription of patient's judgement and insights: Limited I/J - Mood Mood: Anxious - Affect Affect: Constricted - Speech Speech: Appropriate - Formal Thought Process Formal Thought Process: Loosening of associations Psychotic Thoughts and Behaviors: Denies current AH/VH/paranoia - Suicidal Ideation Suicidal Ideation: No - Homicidal Ideation Homicidal Ideation: No Goal/Treatment Plan - Goal/Treatment Plan Need for Continued Stay: Remain at risks for inpatient hospitalization, Severe functional impairment Progress Toward Problem(s) and Goals/Treatment Plan: Schizophrenia; r/o dementia w/ behavioral disturbances; patient presents acutely decompensated in the context of non-compliance w/ medications -Individual and group therapy -Obtain collateral history from family -Medicine consult appreciated -Continue Depakote 125 mg PO BID -Will consider starting Seroquel, pending Cardiology consult -Disposition planning Estimated Date of D/C: 03/02/17
[2017-02-27] MEDS: Divalproex 125 mg DR (BID formulation) PO SCH ×2 (08:20→16:07)
--- NOTE | 2017-02-27 10:47 | CARD ---
APPROVED REPORT EXAM: Two-dimensional and M-mode echocardiogram with Doppler and color Doppler. Other Information Quality : GoodRhythm : NSR INDICATION LV Function: 2D DIMENSIONS Left Atrium (2D)4.54 (1.6-4.0cm)IVSd1.10 (0.7-1.1cm) Aortic Root (2D)3.25 (2.0-3.7cm)LVDd3.70 (3.9-5.9cm) LVOT Diameter2.07 (1.8-2.4cm)PWd0.77 (0.7-1.1cm) IVSs1.32 (0.8-1.2cm)LVDs2.55 (2.5-4.0cm) FS (%) 31.0 %PWs1.16 (0.8-1.2cm) M-Mode DIMENSIONS Left Atrium (MM)4.64 (2.5-4.0cm)IVSd0.96 (0.7-1.1cm) Aortic Root3.84 (2.2-3.7cm)LVDd4.92 (4.0-5.6cm) Aortic Cusp Exc.2.00 (1.5-2.0cm)PWd1.28 (0.7-1.1cm) IVSs1.20 cmFS (%) 25 % LVDs3.68 (2.0-3.8cm)PWs1.52 cm Aortic Valve AI P 1/2 [id number] Mitral Valve MV E Rroineof47.5cm/sMV DECEL [id number] A Vsvfeejm37.5cm/s MV [id number]/A ratio3.3MVA (PHT)3.33cm2 TDI Lateral E' Peak V7.41cm/sMedial E' Peak V7.90cm/sE/Lateral E'13.4 E/Medial E'12.6 Tricuspid Valve TR Peak [id number]/sRAP [id number] Peak Gr.24mmHg IWVQ96moDm LEFT VENTRICLE The left ventricle is normal size. There is normal left ventricular wall thickness. The left ventricular function is normal. The left ventricular ejection fraction is within the normal range. The Ejection Fraction is 55-60%. There is normal LV segmental wall motion. The left ventricular diastolic function is normal. No left ventricle thrombus noted on this study. There is no mass noted in the left ventricle. RIGHT VENTRICLE The right ventricle is normal size. There is normal right ventricular wall thickness. The right ventricular systolic function is normal. ATRIA The left atrium is mildly dilated. The right atrium size is normal. The interatrial septum is intact with no evidence for an atrial septal defect. AORTIC VALVE The aortic valve is normal in structure and function. No aortic regurgitation is present. There is no aortic valvular stenosis. There is no aortic valvular vegetation. MITRAL VALVE The mitral valve is normal in structure and function. There is no evidence of mitral valve prolapse. There is no mitral valve stenosis. There is no mitral valve regurgitation noted. TRICUSPID VALVE The tricuspid valve is normal in structure and function. There is no tricuspid valve regurgitation noted. There is no tricuspid valve prolapse or vegetation. There is no tricuspid valve stenosis. PULMONIC VALVE The pulmonary valve is normal in structure and function. There is no pulmonic valvular regurgitation. There is no pulmonic valvular stenosis. GREAT VESSELS The aortic root is normal in size. The IVC is normal in size and collapses >50% with inspiration. PERICARDIAL EFFUSION The pericardium appears normal. There is no pleural effusion. <Conclusion> The left ventricle is normal size. The left ventricular function is normal. The left ventricular ejection fraction is within the normal range. The Ejection Fraction is 55-60%. The left atrium is mildly dilated.
[2017-02-28] MEDS: Divalproex 125 mg DR (BID formulation) PO SCH ×2 (08:34→16:03)
--- NOTE | 2017-02-28 08:56 | PCM.PYCHPN ---
Psychiatric Progress Note - Psychiatric Progress Note Patient seen today, length of contact: Patient evaluated, case discussed with team, chart reviewed, 35 min Patient Chief Complaint: "I'm okay" Problems Identified/Issues Discussed: No events overnight. Patient can not recall if he has had any hallucinations, but denies current AH/VH. Patient currently calm, cooperative. No periods of agitation or aggression. Medication Change: Yes (Start Seroquel 25 mg PO HS) Medical Record Reviewed: Yes Consults ordered or reviewed: Medicine consult appreciated, Cardiology consult appreciated Mental Status Examination - Cognitive Function Orientation: Person, Place, Situation Memory: Impaired Decription of patient's judgement and insights: Limited I/J - Mood Mood: Neutral - Affect Affect: Constricted - Speech Speech: Appropriate - Formal Thought Process Formal Thought Process: Loosening of associations Psychotic Thoughts and Behaviors: Denies current AH/VH/paranoia, but has difficulty remembering if he had AH - Suicidal Ideation Suicidal Ideation: No - Homicidal Ideation Homicidal Ideation: No Goal/Treatment Plan - Goal/Treatment Plan Need for Continued Stay: Remain at risks for inpatient hospitalization, Severe functional impairment Progress Toward Problem(s) and Goals/Treatment Plan: Schizophrenia; r/o dementia w/ behavioral disturbances; patient presents acutely decompensated in the context of non-compliance w/ medications -Individual and group therapy -Obtain collateral history from family -Medicine + Cardiology consults appreciated -Continue Depakote 125 mg PO BID -Start Seroquel 25 mg PO HS -Disposition planning Estimated Date of D/C: 03/03/17
--- NOTE | 2017-02-28 08:58 | CARD ---
APPROVED REPORT EKG Measurement Heart [id number] <Conclusion> Sinus rhythm with 1st degree AV block with occasional premature ventricular complexes Otherwise normal ECG
[2017-03-01] MEDS: Divalproex 125 mg DR (BID formulation) PO SCH ×2 (09:00→17:00)
--- NOTE | 2017-03-01 09:45 | PCM.PYCHPN ---
Psychiatric Progress Note - Psychiatric Progress Note Patient seen today, length of contact: Patient evaluated, case discussed with team, chart reviewed, 35 min Patient Chief Complaint: "I'm okay" Problems Identified/Issues Discussed: No signficant events overnight. Patient reports that his mood is improving. He denies AH/VH/paranoia. Patient currently calm, cooperative. No periods of agitation or aggression. Diagnostic Results: VPA 18.7 on 03/01/17 Medication Change: No Medical Record Reviewed: Yes Consults ordered or reviewed: Medicine consult appreciated, Cardiology consult appreciated Mental Status Examination - Cognitive Function Orientation: Person, Place, Situation Memory: Impaired Decription of patient's judgement and insights: Limited I/J - Mood Mood: Neutral - Affect Affect: Constricted - Speech Speech: Appropriate - Formal Thought Process Formal Thought Process: Loosening of associations Psychotic Thoughts and Behaviors: Denies current AH/VH/paranoia - Suicidal Ideation Suicidal Ideation: No - Homicidal Ideation Homicidal Ideation: No Goal/Treatment Plan - Goal/Treatment Plan Need for Continued Stay: Remain at risks for inpatient hospitalization, Severe functional impairment Progress Toward Problem(s) and Goals/Treatment Plan: Schizophrenia; r/o dementia w/ behavioral disturbances; patient presented acutely decompensated in the context of non-compliance w/ medications; now improving clinically -Individual and group therapy -Obtain collateral history from family -Medicine + Cardiology consults appreciated -Continue Depakote 125 mg PO BID, VPA 18.7 on 03/01/17 -Continue Seroquel 25 mg PO HS -Disposition planning Estimated Date of D/C: 03/03/17 - Smoking Cessation Smoking Cessation Initiated: No Reason for not providing: Not indicated
--- NOTE | 2017-03-01 13:44 | CP.PCM.PN ---
Subjective - Date & Time of Evaluation Date of Evaluation: 03/01/17 Time of Evaluation: 10:30 - Subjective Subjective: F/U Medical Consult. Pt with no A/D, no c/o. Objective - Vital Signs/Intake and Output Vital Signs (last 24 hours): Temp Pulse Resp BP Pulse Ox 97.1 F L 65 19 126/53 L 97 03/01/17 06:00 03/01/17 06:00 03/01/17 06:00 03/01/17 06:00 02/25/17 05:36 - Medications Medications: Current Medications Acetaminophen (Tylenol 325mg Tab) 650 mg PO Q4 PRN PRN Reason: Pain, moderate (4-7) Al Hydrox/Mg Hydrox/Simethicone (Maalox Plus 30 Ml) 30 ml PO Q4 PRN PRN Reason: Dyspepsia Aspirin (Aspirin Chewable) 81 mg PO DAILY [facility] Last Admin: 03/01/17 09:00 Dose: 81 mg Atorvastatin Calcium (Lipitor) 10 mg PO DAILY [facility] Last Admin: 03/01/17 09:01 Dose: 10 mg Bismuth Subsalicylate (Pepto-Bismol) 524 mg PO Q4 PRN PRN Reason: Diarrhea Carbidopa/Levodopa (Sinemet) 1 tab PO TID [facility] Last Admin: 03/01/17 12:22 Dose: 1 tab Divalproex Sodium (Depakote Dr(*Bid*)) 125 mg PO BID [facility] Last Admin: 03/01/17 09:00 Dose: 125 mg Famotidine (Pepcid) 20 mg PO DAILY [facility] Last Admin: 03/01/17 09:01 Dose: 20 mg Lorazepam (Ativan) 0.5 mg PO HS PRN PRN Reason: Insomnia Stop: 03/10/17 22:19 Lorazepam (Ativan) 0.5 mg PO Q6 PRN PRN Reason: Anixety/Agitation Stop: 03/10/17 22:19 Magnesium Hydroxide (Milk Of Magnesia) 30 ml PO HS PRN PRN Reason: Constipation Quetiapine Fumarate (Seroquel) 25 mg PO HS [facility] Last Admin: 02/28/17 21:42 Dose: 25 mg - Labs Labs: 02/24/17 17:14 02/24/17 17:14 - Constitutional Appears: No Acute Distress, Chronically Ill - Head Exam Head Exam: NORMAL INSPECTION - Eye Exam Eye Exam: PERRL - ENT Exam ENT Exam: Normal Exam - Neck Exam Neck Exam: Normal Inspection - Respiratory Exam Respiratory Exam: Clear to Ausculation Bilateral - Cardiovascular Exam Cardiovascular Exam: REGULAR RHYTHM - GI/Abdominal Exam GI & Abdominal Exam: Soft, Normal Bowel Sounds - Extremities Exam Extremities Exam: Normal Inspection - Back Exam Additional comments: Kyphosis - Neurological Exam Neurological Exam: Alert, Oriented x3. absent: Motor Sensory Deficit Additional comments: Confused, forgetful, no focal motor/sensory deficit, minimal tremor U/E weakness L/E - Psychiatric Exam Additional comments: Calm - Skin Skin Exam: Normal Color, Warm Assessment and Plan (1) Hyperlipidemia Status: Chronic (2) Esophageal reflux Status: Chronic (3) HTN (hypertension) Status: Chronic (4) Heart block AV first degree Status: Acute (5) Parkinson disease Status: Chronic - Assessment and Plan (Free Text) Plan: Cardiology clear for use of Seroquel, BP medication , off BP meds , monitor BP , Continue current Tx.
--- NOTE | 2017-03-02 08:51 | PCM.PYCHDC ---
Mental Status Examination - Mental Status Examination Orientation: Person, Place, Situation Memory: Impaired Mood: Neutral Affect: Broad Speech: Appropriate Attention: WNL Concentration: WNL Association: WNL Fund of Knowledge: WNL Formal Thought Process: Loosening of associations (Due to dementia) Description of patient's judgement and insight: Fair I/J; limited at times due to dementia Psychotic Thoughts and Behaviors: Denies current AH/VH/paranoia Suicidal Ideation: No Current Homicidal Ideation?: No Discharge Summary - Discharge Note Reason for Hospitalization: HPI: 76 yo male w/ history of schizoaffective disorder, referred by his family for visual hallucinations and increased agitation. Patient is a poor historian and was unable to state which medications he takes. He denies current hallucinations, delusions, paranoia, but did report that he has heard voices in the past, but was unable to state when. Patient admitted to having visual hallucinations in the ER, but now denies this. NO SI/HI. Denies currently feeling depressed or anxious. As per family, patient has been non- compliant with medications. PMHx: Parkinson's Disease PMD: Melvin Curtis PPHx: Patient reports that he was first admitted for schizophrenia at age 22 and reports a total of 3 psychiatric admissions. History of outpatient treatment w/ Dr. England, not currently compliant. SHx: Finished 12th grade, reports that he did not work extensively due to his history of chronic mental illness. Denies illicit drug use and ETOH use. Consultations:: List each consultation separately and include: 1. Reason for request. 2. Findings. 3. Follow-up Consultations: Medicine consult appreciated, Cardiology consult appreciated Summary of Hospital Course include:: 1. Description of specific treatment plan utilized for patients during their course of treatmen. 2. Summarize the time- course for resolution of acute symptoms and/or regressed behaviors. 3. Describe issues identified and worked on during hospitalization. 4. Describe medication utilized. 5. Describe medical problems identified and treated. 6. Reassessment of suicide risk Summary of Hospital Course: Patient was admitted to the psychiatry unit. He was stabilized on Depakote 125 mg PO BID and Seroquel 25 mg PO HS. He reports his mood as stable and denies AH/VH/paranoia/delusions. He is currently psychiatrically stable for discharge and will return home under the care of his family. - Diagnosis (1) Schizophrenia Current Visit: Yes Status: Deleted - Final Diagnosis (DSM 5) Condition upon Discharge: STABLE DSM 5: Schizophrenia; Dementia Disposition: HOME/ ROUTINE Follow-up Treatment Plan: Schizophrenia; Dementia; patient is psychiatrically stable for discharge to home under the care of his family. -Individual and group therapy -Medicine + Cardiology consults appreciated -Continue Depakote 125 mg PO BID, VPA 18.7 on 03/01/17 -Continue Seroquel 25 mg PO HS Prescriptions/Medication Reconciliation: Aspirin [Aspirin Chewable] 81 mg PO DAILY #30 chew Atorvastatin [Lipitor] 10 mg PO DAILY #30 tab Carbidopa/Levodopa [Carbidopa-Levodopa 25-100 Tab] 1 tab PO TID #90 tablet Divalproex [Depakote DR(*BID*)] 125 mg PO BID #60 tcp Famotidine [Pepcid] 20 mg PO DAILY #30 tab QUEtiapine [Seroquel] 25 mg PO HS #30 tab - Smoking Cessation Smoking Cessation Medication prescribed: No Reason for not providing: Not indicated - Antipsychotic Medications Pt discharged on 2 or more routine antipsychotic medications: No
[2017-03-02] MEDS: Divalproex 125 mg DR (BID formulation) PO SCH ×2 (08:55→17:24)
--- NOTE | 2017-03-02 14:30 | CP.PCM.PN ---
Subjective - Date & Time of Evaluation Date of Evaluation: 03/02/17 - Subjective Subjective: F/u Medical consult. No AD , N/C Objective - Vital Signs/Intake and Output Vital Signs (last 24 hours): Temp Pulse Resp BP Pulse Ox 98.1 F 74 18 125/67 97 03/02/17 06:00 03/02/17 06:00 03/02/17 06:00 03/02/17 06:00 02/25/17 05:36 - Medications Medications: Current Medications Acetaminophen (Tylenol 325mg Tab) 650 mg PO Q4 PRN PRN Reason: Pain, moderate (4-7) Al Hydrox/Mg Hydrox/Simethicone (Maalox Plus 30 Ml) 30 ml PO Q4 PRN PRN Reason: Dyspepsia Aspirin (Aspirin Chewable) 81 mg PO DAILY [facility] Last Admin: 03/02/17 08:55 Dose: 81 mg Atorvastatin Calcium (Lipitor) 10 mg PO DAILY [facility] Last Admin: 03/02/17 08:57 Dose: 10 mg Bismuth Subsalicylate (Pepto-Bismol) 524 mg PO Q4 PRN PRN Reason: Diarrhea Carbidopa/Levodopa (Sinemet) 1 tab PO TID [facility] Last Admin: 03/02/17 14:10 Dose: 1 tab Divalproex Sodium (Depakote Dr(*Bid*)) 125 mg PO BID [facility] Last Admin: 03/02/17 08:55 Dose: 125 mg Famotidine (Pepcid) 20 mg PO DAILY [facility] Last Admin: 03/02/17 08:55 Dose: 20 mg Lorazepam (Ativan) 0.5 mg PO HS PRN PRN Reason: Insomnia Stop: 03/10/17 22:19 Lorazepam (Ativan) 0.5 mg PO Q6 PRN PRN Reason: Anixety/Agitation Stop: 03/10/17 22:19 Magnesium Hydroxide (Milk Of Magnesia) 30 ml PO HS PRN PRN Reason: Constipation Quetiapine Fumarate (Seroquel) 25 mg PO HS [facility] Last Admin: 03/01/17 21:11 Dose: 25 mg - Labs Labs: 02/24/17 17:14 02/24/17 17:14 - Constitutional Appears: Chronically Ill - Head Exam Head Exam: NORMAL INSPECTION - Eye Exam Eye Exam: PERRL - ENT Exam ENT Exam: Normal Exam - Neck Exam Neck Exam: Normal Inspection - Respiratory Exam Respiratory Exam: Clear to Ausculation Bilateral - Cardiovascular Exam Cardiovascular Exam: REGULAR RHYTHM - GI/Abdominal Exam GI & Abdominal Exam: Soft, Normal Bowel Sounds - Extremities Exam Extremities Exam: Normal Inspection - Back Exam Additional comments: Kyphosis - Neurological Exam Neurological Exam: Awake Additional comments: Confused, forgetful, no focal motor/sensory deficit, weakness L/E - Psychiatric Exam Additional comments: Calm - Skin Skin Exam: Warm Assessment and Plan (1) HTN (hypertension) Status: Chronic (2) Heart block AV first degree Status: Acute (3) Hyperlipidemia Status: Chronic (4) Esophageal reflux Status: Chronic (5) Vitamin D deficiency Status: Chronic - Assessment and Plan (Free Text) Plan: Off BP medication , monitor BP , Cholesterol low , Lipitor was DC , Vit D low, add Vit D 41031 U weekly. Improved and stable to be discharged home, call my office for f/u appt
[2017-03-03 05:42] VITALS: BP 127/74; PULSE 80; RESP 19; TEMP 97.2
[2017-03-03] MEDS: Divalproex 125 mg DR (BID formulation) PO SCH (08:48)
[2017-03-03] MEDS ORDERED: Ergocalciferol 50,000 Intl Units Cap PO SCH (09:00)
--- NOTE | 2017-03-03 12:25 | PCM.PYCHDC ---
Mental Status Examination - Mental Status Examination Orientation: Person, Place, Situation Memory: Impaired Mood: Neutral Affect: Broad Speech: Appropriate Attention: WNL Concentration: WNL Association: WNL Fund of Knowledge: WNL Formal Thought Process: No Impairment Description of patient's judgement and insight: Fair I/J; limited at times due to dementia Psychotic Thoughts and Behaviors: Denies current AH/VH/paranoia Suicidal Ideation: No Current Homicidal Ideation?: No Discharge Summary - Discharge Note Reason for Hospitalization: HPI: 76 yo male w/ history of schizoaffective disorder, referred by his family for visual hallucinations and increased agitation. Patient is a poor historian and was unable to state which medications he takes. He denies current hallucinations, delusions, paranoia, but did report that he has heard voices in the past, but was unable to state when. Patient admitted to having visual hallucinations in the ER, but now denies this. NO SI/HI. Denies currently feeling depressed or anxious. As per family, patient has been non- compliant with medications. PMHx: Parkinson's Disease PMD: Melvin Curtis PPHx: Patient reports that he was first admitted for schizophrenia at age 22 and reports a total of 3 psychiatric admissions. History of outpatient treatment w/ Dr. England, not currently compliant. SHx: Finished 12th grade, reports that he did not work extensively due to his history of chronic mental illness. Denies illicit drug use and ETOH use. Consultations:: List each consultation separately and include: 1. Reason for request. 2. Findings. 3. Follow-up Consultations: Medicine consult appreciated, Cardiology consult appreciated Summary of Hospital Course include:: 1. Description of specific treatment plan utilized for patients during their course of treatmen. 2. Summarize the time- course for resolution of acute symptoms and/or regressed behaviors. 3. Describe issues identified and worked on during hospitalization. 4. Describe medication utilized. 5. Describe medical problems identified and treated. 6. Reassessment of suicide risk Summary of Hospital Course: Patient was admitted to the psychiatry unit. He was stabilized on Depakote 125 mg PO BID and Seroquel 25 mg PO HS. He reports his mood as stable and denies AH/VH/paranoia/delusions. He is currently psychiatrically stable for discharge to [facility]. - Diagnosis (1) Schizophrenia Current Visit: Yes Status: Deleted - Final Diagnosis (DSM 5) Condition upon Discharge: STABLE DSM 5: Schizophrenia, Dementia Disposition: HOME/ ROUTINE Follow-up Treatment Plan: Schizophrenia; Dementia; patient is psychiatrically stable for discharge to [facility]. -Individual and group therapy -Medicine + Cardiology consults appreciated -Continue Depakote 125 mg PO BID, VPA 18.7 on 03/01/17 -Continue Seroquel 25 mg PO HS Prescriptions/Medication Reconciliation: Aspirin [Aspirin Chewable] 81 mg PO DAILY #30 chew Atorvastatin [Lipitor] 10 mg PO DAILY #30 tab Carbidopa/Levodopa [Carbidopa-Levodopa 25-100 Tab] 1 tab PO TID #90 tablet Divalproex [Depakote DR(*BID*)] 125 mg PO BID #60 tcp Famotidine [Pepcid] 20 mg PO DAILY #30 tab QUEtiapine [Seroquel] 25 mg PO HS #30 tab - Smoking Cessation Smoking Cessation Medication prescribed: No Reason for not providing: Not indicated - Antipsychotic Medications Pt discharged on 2 or more routine antipsychotic medications: No
== END 2017-03-03 13:23 | disposition home or self-care (01) | DRG 885 ==
LOC: H.ER 16:19 → H.ERHOLD 20:37 → H.STEP 22:03
PROVIDERS: ADMIT Psychiatry & Neurology Psychiatry; ATTEND Psychiatry & Neurology Psychiatry
PROC: GZHZZZZ Group Psychotherapy (ICD-10-PCS; principal; 2017-02-24)
DX: F20.9 Schizophrenia, unspecified (principal); G20 Parkinson's disease; F02.80 Dementia in other diseases classified elsewhere, unspecified severity, without behavioral disturbance, psychotic disturbance, mood disturbance, and anxiety; Z91.14 Patient's other noncompliance with medication regimen; I10 Essential (primary) hypertension; E55.9 Vitamin D deficiency, unspecified; E78.5 Hyperlipidemia, unspecified; I44.0 Atrioventricular block, first degree; K21.9 Gastro-esophageal reflux disease without esophagitis; E78.00 Pure hypercholesterolemia, unspecified

== ENCOUNTER 2017-05-30 21:15 | Inpatient (IN) | payer MEDICARE ==
[2017-05-30] MEDS ORDERED: Sodium Chloride 0.9% 500 ML IV STA (22:01)
--- NOTE | 2017-05-30 22:05 | ED PDOC ---
HPI: General Adult Time Seen by Provider: 05/30/17 21:35 Chief Complaint (Nursing): GI Problem Chief Complaint (Provider): Constipation History Per: Patient History/Exam Limitations: no limitations Onset/Duration Of Symptoms: Days (1 week) Current Symptoms Are (Timing): Still Present Additional Complaint(s): Pt. with constipation for 1 week. No abd pain. Has pain in the rectum area. No chest pain, dyspnea, weakness, headaches, dizziness, back pain, leg pain, numbness, tingles. No urinary complaints. Walks around with a walker. Past Medical History Reviewed: Nursing Documentation, Vital Signs Vital Signs: Last Vital Signs Temp 98.3 F 05/30/17 21:21 Pulse 94 H 05/30/17 21:21 Resp 18 05/30/17 21:21 BP 150/80 05/30/17 21:21 Pulse Ox 97 05/30/17 23:40 - Medical History PMH: Depression, HTN, Hypercholesterolemia, Hyperlipidemia, Parkinson's Disease , Schizophrenia Denies: Chronic Kidney Disease - Family History Family History: States: Unknown Family Hx - Living Arrangements Living Arrangements: With Family - Social History Current smoker - smoking cessation education provided: No Alcohol: None Drugs: Denies - Home Medications Home Medications: Ambulatory Orders Medication Instructions Recorded Aspirin [Aspirin Chewable] 81 mg PO DAILY #30 chew 03/01/17 Atorvastatin [Lipitor] 10 mg PO DAILY #30 tab 03/01/17 Carbidopa/Levodopa 1 tab PO TID #90 tablet 03/01/17 [Carbidopa-Levodopa 25-100 Tab] Divalproex [Depakote DR(*BID*)] 125 mg PO BID #60 tcp 03/01/17 Famotidine [Pepcid] 20 mg PO DAILY #30 tab 03/01/17 QUEtiapine [Seroquel] 25 mg PO HS #30 tab 03/01/17 Ergocalciferol [Drisdol 50,000 1 cap PO QWK cap 03/03/17 Intl Units Cap] - Allergies Allergies/Adverse Reactions: Allergies Allergy/AdvReac Type Severity Reaction Status Date / Time No Known Allergies Allergy Verified 06/23/14 16:38 Review of Systems ROS Statement: Except As Marked, All Systems Reviewed And Found Negative Gastrointestinal: Positive for: Constipation Physical Exam - Reviewed Nursing Documentation Reviewed: Yes Vital Signs Reviewed: Yes - Physical Exam Appears: Positive for: Non-toxic, No Acute Distress Head Exam: Positive for: ATRAUMATIC, NORMAL INSPECTION, NORMOCEPHALIC Skin: Positive for: Normal Color, Warm, DRY Eye Exam: Positive for: EOMI, Normal appearance, PERRL ENT: Positive for: Normal ENT Inspection Neck: Positive for: Normal, Painless ROM Cardiovascular/Chest: Positive for: Regular Rate, Rhythm Respiratory: Positive for: CNT, Normal Breath Sounds Gastrointestinal/Abdominal: Positive for: Normal Exam, Bowel Sounds, Soft. Negative for: Tenderness Back: Positive for: Other (mild tender in rectum area). Negative for: L CVA Tenderness, R CVA Tenderness Extremity: Positive for: Normal ROM Neurologic/Psych: Positive for: Alert, Oriented - Laboratory Results Result Diagrams: 05/30/17 22:40 05/30/17 22:40 Interpretation Of Abn Labs: 24 bun - ECG O2 Sat by Pulse Oximetry: 97 - Radiology X-Ray: Interpreted by Me, Viewed By Me X-Ray Interpretation: Other (constipation) - Progress ED Course And Treament: 2356: Will give fleets and pt. can be dc. Stable. AAOx3. Pain free. Tolerated po. Disposition - Clinical Impression Clinical Impression: Constipation - Patient ED Disposition Is Patient to be Admitted: No Counseled Patient/Family Regarding: Studies Performed, Diagnosis, Need For Followup - Disposition Referrals: [facility] [Outside] - 06/01/17 Disposition: Routine/Home Disposition Time: 00:05 Condition: STABLE Additional Instructions: Return if not better in 3 days. Instructions: Constipation (ED)
[2017-05-30 22:46] LABS: BASO % 0.3 % (0.0-2.0); EOS % 0.4 % (0.0-4.0); HEMOGLOBIN 13.1 g/dL (12.0-18.0); LYMPH # 0.4 K/uL (1.0-4.3); MEAN CELL VOLUME 86.9 fl (80.0-94.0); MEAN CORPUSCULAR HEMOGLOBIN 29.2 pg (27.0-31.0); MEAN CORPUSCULAR HGB CONC 33.6 g/dL (33.0-37.0); MEAN PLATELET VOLUME 8.8 fl (7.2-11.7); MONO # 0.9 K/uL (0.0-0.8); MONO % 9.1 % (0.0-10.0); NEUT # 8.3 K/uL (1.8-7.0); NEUT % 86.2 % (50.0-75.0); NRBC % 0.1 % (0.0-0.0); PLATELET COUNT 242 K/uL (130-400); RBC 4.51 Mil/uL (4.40-5.90); RED CELL DISTRIBUTION WIDTH 14.2 % (11.5-14.5); WHITE BLOOD COUNT 9.6 K/uL (4.8-10.8)
[2017-05-30 22:58] LABS: ALB/GLOB RATIO 1.3 (1.0-2.1); ALBUMIN 4.3 g/dL (3.5-5.0); ALT/SGPT 25 U/L (21-72); AST/SGOT 31 U/L (17-59); BLOOD UREA NITROGEN 24 mg/dl (9-20); CALCIUM 9.6 mg/dL (8.4-10.2); GFR AFRICAN-AMERICAN > 60; GFR NON-AFRICAN AMERICAN > 60
[2017-05-31 00:26] LABS: BANDS 1 % (0-2); LYMPHOCYTE 4 % (20-50); MONOCYTE 6 % (0-10); NEUTROPHIL 87 % (42-75); PLATELET ESTIMATE NORMAL (NORMAL); REACTIVE LYMPHOCYTES 2 % (0-0); TOTAL CELLS COUNTED 100
--- NOTE | 2017-05-31 03:35 | ED PDOC ---
HPI: Abdomen Time Seen by Provider: 05/30/17 21:35 Chief Complaint (Nursing): GI Problem Chief Complaint (Provider): Constipation History Per: Patient History/Exam Limitations: no limitations Onset/Duration Of Symptoms: Days (1 week) Past Medical History Vital Signs: Last Vital Signs Temp 98.3 F 05/30/17 21:21 Pulse 94 H 05/30/17 21:21 Resp 18 05/30/17 21:21 BP 150/80 05/30/17 21:21 Pulse Ox 97 05/31/17 03:37 - Medical History PMH: Depression, HTN, Hypercholesterolemia, Hyperlipidemia, Parkinson's Disease , Schizophrenia Denies: Chronic Kidney Disease - Family History Family History: States: Unknown Family Hx - Social History Current smoker - smoking cessation education provided: No Alcohol: None Drugs: Denies - Home Medications Home Medications: Ambulatory Orders Medication Instructions Recorded Aspirin [Aspirin Chewable] 81 mg PO DAILY #30 chew 03/01/17 Atorvastatin [Lipitor] 10 mg PO DAILY #30 tab 03/01/17 Carbidopa/Levodopa 1 tab PO TID #90 tablet 03/01/17 [Carbidopa-Levodopa 25-100 Tab] Divalproex [Depakote DR(*BID*)] 125 mg PO BID #60 tcp 03/01/17 Famotidine [Pepcid] 20 mg PO DAILY #30 tab 03/01/17 QUEtiapine [Seroquel] 25 mg PO HS #30 tab 03/01/17 Ergocalciferol [Drisdol 50,000 1 cap PO QWK cap 03/03/17 Intl Units Cap] - Allergies Allergies/Adverse Reactions: Allergies Allergy/AdvReac Type Severity Reaction Status Date / Time No Known Allergies Allergy Verified 06/23/14 16:38 - Laboratory Results Result Diagrams: 05/30/17 22:40 05/30/17 22:40 - ECG O2 Sat by Pulse Oximetry: 97 Medical Decision Making Medical Decision Making: Time: 00:00 --Patient signed out to me by Dr. Sultana pending crisis evaluation. Time: 04:30 Upon provider evaluation patient is medically stable, and requires no further treatment in the ED at this time. Patient will be discharged with Rx for Tamiflu. Counseling was provided and all questions were answered regarding diagnosis and need for follow up with PMD. There is agreement to discharge plan. Return if symptoms persist or worsen. Scribe Attestation: Documented by Bonifacio Boone, acting as a scribe for Brett Jensen MD. Provider Scribe Attestation: All medical record entries made by the Scribe were at my direction and personally dictated by me. I have reviewed the chart and agree that the record accurately reflects my personal performance of the history, physical exam, medical decision making, and the department course for this patient. I have also personally directed, reviewed, and agree with the discharge instructions and disposition. Disposition - Clinical Impression Clinical Impression: Constipation - Disposition Referrals: [facility] [Outside] - 06/01/17 Disposition: Routine/Home Disposition Time: 00:05 Condition: STABLE Additional Instructions: Return if not better in 3 days. Instructions: Constipation (ED)
--- NOTE | 2017-05-31 04:41 | ED PDOC ---
- Laboratory Results Result Diagrams: 05/30/17 22:40 05/30/17 22:40 - ECG O2 Sat by Pulse Oximetry: 97 Medical Decision Making Medical Decision Making: Time: 00:00 Patient signed out to me by Dr. Sultana pending crisis evaluation. Time: 04:30 Patients family states that patient is unsafe at home and thats hes threatening family members. Crisis states patient does not meet admit requirements at this time. Spoke with Dr. Curtis who will admit patient for AMS to observation for further workup. Scribe Attestation: Documented by Bonifacio Boone, acting as a scribe for Brett Jensen MD. Provider Scribe Attestation: All medical record entries made by the Scribe were at my direction and personally dictated by me. I have reviewed the chart and agree that the record accurately reflects my personal performance of the history, physical exam, medical decision making, and the department course for this patient. I have also personally directed, reviewed, and agree with the discharge instructions and disposition. Disposition - Clinical Impression Clinical Impression: Constipation, Altered mental status - POA Present On Arrival: None - Disposition Disposition: Hospitalized as Observation Patient Disposition Time: 04:00 Condition: STABLE
[2017-05-31 08:34] LABS: BASO % 0.2 % (0.0-2.0); EOS # 0.1 K/uL (0.0-0.7); EOS % 0.6 % (0.0-4.0); HEMOGLOBIN 12.5 g/dL (12.0-18.0); LYMPH # 0.7 K/uL (1.0-4.3); LYMPH % 7.3 % (20.0-40.0); MEAN CELL VOLUME 87.1 fl (80.0-94.0); MEAN CORPUSCULAR HEMOGLOBIN 29.3 pg (27.0-31.0); MEAN CORPUSCULAR HGB CONC 33.6 g/dL (33.0-37.0); MEAN PLATELET VOLUME 9.1 fl (7.2-11.7); MONO # 1.2 K/uL (0.0-0.8); MONO % 12.6 % (0.0-10.0); NEUT # 7.4 K/uL (1.8-7.0); NEUT % 79.3 % (50.0-75.0); RBC 4.26 Mil/uL (4.40-5.90); RED CELL DISTRIBUTION WIDTH 13.9 % (11.5-14.5); WHITE BLOOD COUNT 9.3 K/uL (4.8-10.8)
[2017-05-31] MEDS ORDERED: Pneumococcal 23-Valent Vaccine IM ONE (09:00)
--- NOTE | 2017-05-31 09:01 | RAD ---
PROCEDURE: Radiographs of the chest and abdomen (obstructive series) HISTORY: constipation COMPARISON: No prior. TECHNIQUE: AP radiograph of the chest, with upright and supine radiographs of the abdomen. FINDINGS: CHEST: A scoliotic deformity is appreciated throughout the thoracic spine once again with limited fibrotic change seen the left base no active infiltrate or pleural effusion bilaterally. Cardiac size is stable. No pulmonary derangement, no pneumothorax. ABDOMEN AND PELVIS: There is a nonobstructive bowel gas pattern appreciated moderate right rectal fecal impaction is identified up to 9 cm. No prominent free intrarenal gas. Phleboliths identified in the bilateral pelvis soft tissues with a nonspecific calcification in the inferior left flank states representing or urolith or calcified lymph node or granuloma. Chronically inspissated oral contrast within the diverticulum is a possibility as well. IMPRESSION: No definite bowel obstruction pattern appreciable. No free intrarenal gas. Rectal fecal impaction is appreciate up to 9 cm and a left like calcifications identified inferiorly positioned triplet or reflecting console or granuloma with urolith not favored. Oral contrast chronically within a diverticulum is a possibility.
--- NOTE | 2017-05-31 09:04 | RAD ---
PROCEDURE: Radiographs of the Lumbar Spine. HISTORY: back pain COMPARISON: No prior. FINDINGS: BONES: An S-shaped thoracolumbar scoliotic deformity appears mild. A compression fracture L1 is questioned as well as T12. No definite spondylolisthesis with multilevel spondylosis identified as well as occasional disc desiccation L1-2 and L5-S1. No destructive bony lesion. Diffuse osteopenia suggests osteoporosis. DISC SPACES: As above OTHER FINDINGS: None. IMPRESSION: Mild S-shaped thoracolumbar scoliosis with fractures of the T12 and L1 vertebral bodies appreciated [id number] severity but of indeterminate age. Diffuse osteopenia suggests osteoporosis. Advanced degenerative disease appreciated at a few levels.
[2017-05-31 09:06] LABS: ALB/GLOB RATIO 1.2 (1.0-2.1); ALBUMIN 3.7 g/dL (3.5-5.0); ALT/SGPT 37 U/L (21-72); AST/SGOT 31 U/L (17-59); BLOOD UREA NITROGEN 23 mg/dl (9-20); CALCIUM 8.8 mg/dL (8.4-10.2); GFR AFRICAN-AMERICAN > 60; GFR NON-AFRICAN AMERICAN > 60; HDL CHOLESTEROL 49 MG/DL (30-70)
[2017-05-31 09:07] LABS: LDL CHOLESTEROL 31 mg/dL (0-129)
[2017-05-31 09:12] LABS: T4 8.11 ug/dl (5.5-11.0)
[2017-05-31] MEDS ORDERED: Ergocalciferol 50,000 Intl Units Cap PO SCH (12:30)
[2017-05-31] MEDS: Divalproex 125 mg DR (BID formulation) PO SCH ×2 (13:15→17:21)
--- NOTE | 2017-05-31 14:04 | CP.PCM.CON ---
History of Present Illness - History of Present Illness History of Present Illness: pt requested because pt has hx of schizoaffective disorder pt 76 ys old male with hx of schizoaffective disorder, recently discharged from [facility] psychiatry unit, following up with outpatient department pt has been admitted to medical floor for constipation on evaluation pt was calm and cooperative no disturbances reported by staff, pt reported complaint with medications denied any current active psychotic symptoms denied manic or depressive symptoms Past Patient History - Infectious Disease Hx of Infectious Diseases: None - Tetanus Immunizations Tetanus Immunization: Up to Date - Past Medical History & Family History Past Medical History?: Yes - Past Social History Smoking Status: Never Smoked - CARDIAC Hx Cardiac Disorders: No Hx Hypertension: Yes - PULMONARY Hx Tuberculosis: No - NEUROLOGICAL Hx Neurological Disorder: Yes (parkinsons) - HEENT Hx HEENT Problems: Yes Other/Comment: uses bifocal glasses - RENAL Hx Chronic Kidney Disease: No - ENDOCRINE/METABOLIC Hx Endocrine Disorders: No - HEMATOLOGICAL/ONCOLOGICAL Hx Cancer: No Hx Human Immunodeficiency Virus (HIV): No - INTEGUMENTARY Hx Dermatological Problems: No - MUSCULOSKELETAL/RHEUMATOLOGICAL Hx Musculoskeletal Disorders: Yes Hx Falls: Yes - GASTROINTESTINAL Hx Gastrointestinal Disorders: Yes Hx Gastroesophageal Reflux: Yes - GENITOURINARY/GYNECOLOGICAL Hx Sexually Transmitted Disorders: No - PSYCHIATRIC Hx Depression: Yes Hx Schizophrenia: Yes Hx Substance Use: No - SURGICAL HISTORY Hx Surgeries: No - ANESTHESIA Hx Anesthesia: No Meds Allergies/Adverse Reactions: Allergies Allergy/AdvReac Type Severity Reaction Status Date / Time No Known Allergies Allergy Verified 06/23/14 16:38 - Medications Medications: Current Medications Aspirin (Aspirin Chewable) 81 mg PO DAILY [facility] Atorvastatin Calcium (Lipitor) 10 mg PO HS [facility] Carbidopa/Levodopa (Sinemet) 1 tab PO TID [facility] Last Admin: 05/31/17 13:16 Dose: 1 tab Divalproex Sodium (Depakote Dr(*Bid*)) 125 mg PO TID [facility] Last Admin: 05/31/17 13:15 Dose: 125 mg Enoxaparin Sodium (Lovenox) 40 mg SC DAILY [facility] PRN Reason: Protocol Ergocalciferol (Drisdol 50,000 Intl Units Cap) 1 cap PO QWK [facility] Famotidine (Pepcid) 20 mg PO DAILY [facility] Quetiapine Fumarate (Seroquel) 25 mg PO HS [facility] Physical Exam - Psychiatric Exam Additional comments: pt seen in bed calm cooperative speech soft , thought form circumstantial, reported mood fine, appropriate affect denied any current suicidal or homicidal ideations, denied perceptual disturbances, non elicited alert awake oriented to person and place fair insight and judgment Results - Vital Signs Recent Vital Signs: Last Vital Signs Temp 98.1 F 05/31/17 08:09 Pulse 61 05/31/17 08:09 Resp 20 05/31/17 08:09 BP 161/81 H 05/31/17 08:09 Pulse Ox 96 05/31/17 08:09 - Labs Result Diagrams: 05/31/17 08:15 05/31/17 08:15 Labs: Laboratory Results - last 24 hr 05/30/17 05/30/17 05/31/17 22:40 22:40 08:15 WBC 9.6 D 9.3 RBC 4.51 4.26 L Hgb 13.1 12.5 Hct 39.2 37.1 MCV 86.9 D 87.1 MCH 29.2 29.3 MCHC 33.6 33.6 RDW 14.2 13.9 Plt Count 242 232 MPV 8.8 9.1 Neut % (Auto) 86.2 H 79.3 H Lymph % (Auto) 4.0 L 7.3 L [place] % (Auto) 9.1 12.6 H Eos % (Auto) 0.4 0.6 Baso % (Auto) 0.3 0.2 Neut # 8.3 H 7.4 H Lymph # 0.4 L 0.7 L [place] # 0.9 H 1.2 H Eos # 0.0 0.1 Baso # 0.0 0.0 Neutrophils % (Manual) 87 H Band Neutrophils % 1 Lymphocytes % (Manual) 4 L Reactive Lymphs % 2 H Monocytes % (Manual) 6 Platelet Estimate Normal Sodium 138 Potassium 4.3 Chloride 99 Carbon Dioxide 25 Anion Gap 18 BUN 24 H Creatinine 1.0 Est GFR ( Amer) > 60 Est GFR (Non-Af Amer) > 60 Random Glucose 132 H Calcium 9.6 Total Bilirubin 1.0 AST 31 ALT 25 Alkaline Phosphatase 87 Troponin I 0.0190 Total Protein 7.6 Albumin 4.3 Globulin 3.2 Albumin/Globulin Ratio 1.3 Triglycerides Cholesterol LDL Cholesterol Direct HDL Cholesterol Thyroxine (T4) TSH 3rd Generation 05/31/17 08:15 WBC RBC Hgb Hct MCV MCH MCHC RDW Plt Count MPV Neut % (Auto) Lymph % (Auto) [place] % (Auto) Eos % (Auto) Baso % (Auto) Neut # Lymph # [place] # Eos # Baso # Neutrophils % (Manual) Band Neutrophils % Lymphocytes % (Manual) Reactive Lymphs % Monocytes % (Manual) Platelet Estimate Sodium 139 Potassium 3.7 Chloride 103 Carbon Dioxide 24 Anion Gap 16 BUN 23 H Creatinine 0.9 Est GFR ( Amer) > 60 Est GFR (Non-Af Amer) > 60 Random Glucose 101 Calcium 8.8 Total Bilirubin 1.1 AST 31 ALT 37 Alkaline Phosphatase 77 Troponin I Total Protein 6.8 Albumin 3.7 Globulin 3.1 Albumin/Globulin Ratio 1.2 Triglycerides 40 Cholesterol 101 LDL Cholesterol Direct 31 HDL Cholesterol 49 Thyroxine (T4) 8.11 TSH 3rd Generation 0.43 L Assessment & Plan - Assessment and Plan (Free Text) Assessment: schizoaffective disorder stable Plan: pt at current mental status denied suicidal or homicidal ideations, denied perceptual disturbances at current mental status not danger to self or others pt psychiatricaly cleared for discharge home once medicaly stable
--- NOTE | 2017-05-31 19:48 | CP.PCM.HP ---
History of Present Illness - History of Present Illness History of Present Illness: CC: Constipation. 76 y/o M, referred to ER via EMS by family to be evaluated for constipation, onset one week [employer], Pt using laxatives with no relief. Pt admitted due to one week of constipation associated to intermittent LLQ pain , described as sharp, moderate intensity 5:10 radiated to lower back. Worsening symptoms: As per Nephew, aggressive behavior toward Pt's family. Hx of Schizophrenia, as per family, Police was called for AMS, family requesting Psychiatric eval. Aggravated factor: Non in compliance with medications. Pt denied: Fever, chills, weakness, dizziness, CP, palpitations, numbness, SOB , cough, n/v/d, urinary symptoms, SI, [place], sick contact, recent travel out of [place]. Abd Obstructive Series: No bowel obstruction but rectal fecal impaction. Lumbar spine X-Ray: Thoracolumbar scoliosis with Fx T12, L1 vertebral with mild to moderate severity, indeterminate age. diffused Osteopenia, suggests Osteoporosis, advance degenerative disease. L Present on Admission - Present on Admission Any Indicators Present on Admission: No Review of Systems - Constitutional Constitutional: Frequent Falls, Weakness - EENT Eyes: Requires Corrective Lenses Ears: Other (negative) Nose/Mouth/Throat: Other (negative) - Cardiovascular Cardiovascular: Other (negative) - Respiratory Respiratory: Other (negative) - Gastrointestinal Gastrointestinal: Abdominal Pain (LLQ), Constipation - Genitourinary Genitourinary: Other (negative) - Musculoskeletal Musculoskeletal: Back Pain - Integumentary Integumentary: Other (negative) - Neurological Neurological: Behavioral Changes, Weakness (L/E) - Psychiatric Psychiatric: Anxiety, Behavioral Changes - Endocrine Endocrine: Other (negative) - Hematologic/Lymphatic Hematologic: Other (negative) Past Patient History - Infectious Disease Hx of Infectious Diseases: None - Tetanus Immunizations Tetanus Immunization: Up to Date - Past Medical History & Family History Past Medical History?: Yes - Past Social History Smoking Status: Never Smoked Alcohol: None Drugs: Denies Home Situation {Lives}: Alone - CARDIAC Hx Cardiac Disorders: Yes Hx Hypercholesterolemia: Yes Hx Hypertension: Yes - PULMONARY Hx Respiratory Disorders: No Hx Tuberculosis: No - NEUROLOGICAL Hx Neurological Disorder: Yes (parkinsons) - HEENT Hx HEENT Problems: Yes Other/Comment: uses bifocal glasses - RENAL Hx Chronic Kidney Disease: No - ENDOCRINE/METABOLIC Hx Endocrine Disorders: No - HEMATOLOGICAL/ONCOLOGICAL Hx Blood Disorders: No Hx Cancer: No Hx Human Immunodeficiency Virus (HIV): No - INTEGUMENTARY Hx Dermatological Problems: No - MUSCULOSKELETAL/RHEUMATOLOGICAL Hx Musculoskeletal Disorders: Yes Hx Back Pain: Yes Hx Falls: Yes - GASTROINTESTINAL Hx Gastrointestinal Disorders: Yes Hx Gastroesophageal Reflux: Yes - GENITOURINARY/GYNECOLOGICAL Hx Genitourinary Disorders: No Hx Sexually Transmitted Disorders: No - PSYCHIATRIC Hx Psychophysiologic Disorder: Yes Hx Depression: Yes Hx Schizophrenia: Yes Hx Substance Use: No - SURGICAL HISTORY Hx Surgeries: No - ANESTHESIA Hx Anesthesia: No Meds Allergies/Adverse Reactions: Allergies Allergy/AdvReac Type Severity Reaction Status Date / Time No Known Allergies Allergy Verified 06/23/14 16:38 Physical Exam - Constitutional Appears: No Acute Distress - Head Exam Head Exam: NORMAL INSPECTION - Eye Exam Eye Exam: PERRL - ENT Exam ENT Exam: Normal Exam - Neck Exam Neck exam: Positive for: Normal Inspection - Respiratory Exam Respiratory Exam: Clear to Auscultation Bilateral - Cardiovascular Exam Cardiovascular Exam: REGULAR RHYTHM - GI/Abdominal Exam GI & Abdominal Exam: Normal Bowel Sounds, Soft - Extremities Exam Extremities exam: Positive for: normal inspection - Back Exam Additional comments: Kyphoscoliosis - Neurological Exam Additional comments: awake , AO x2 unsteady gait , weakness lower extremities. - Psychiatric Exam Psychiatric exam: Normal Mood - Skin Skin Exam: Warm Results - Vital Signs Recent Vital Signs: Last Vital Signs Temp 97.9 F 05/31/17 16:44 Pulse 75 05/31/17 16:44 Resp 20 05/31/17 16:44 BP 157/66 H 05/31/17 16:44 Pulse Ox 94 L 05/31/17 16:44 reviewed J.PTomasz - Labs Result Diagrams: 05/31/17 08:15 05/31/17 08:15 Labs: Laboratory Results - last 24 hr 05/30/17 05/30/17 05/31/17 22:40 22:40 08:15 WBC 9.6 D 9.3 RBC 4.51 4.26 L Hgb 13.1 12.5 Hct 39.2 37.1 MCV 86.9 D 87.1 MCH 29.2 29.3 MCHC 33.6 33.6 RDW 14.2 13.9 Plt Count 242 232 MPV 8.8 9.1 Neut % (Auto) 86.2 H 79.3 H Lymph % (Auto) 4.0 L 7.3 L [place] % (Auto) 9.1 12.6 H Eos % (Auto) 0.4 0.6 Baso % (Auto) 0.3 0.2 Neut # 8.3 H 7.4 H Lymph # 0.4 L 0.7 L [place] # 0.9 H 1.2 H Eos # 0.0 0.1 Baso # 0.0 0.0 Neutrophils % (Manual) 87 H Band Neutrophils % 1 Lymphocytes % (Manual) 4 L Reactive Lymphs % 2 H Monocytes % (Manual) 6 Platelet Estimate Normal Sodium 138 Potassium 4.3 Chloride 99 Carbon Dioxide 25 Anion Gap 18 BUN 24 H Creatinine 1.0 Est GFR ( Amer) > 60 Est GFR (Non-Af Amer) > 60 Random Glucose 132 H Calcium 9.6 Total Bilirubin 1.0 AST 31 ALT 25 Alkaline Phosphatase 87 Troponin I 0.0190 Total Protein 7.6 Albumin 4.3 Globulin 3.2 Albumin/Globulin Ratio 1.3 Triglycerides Cholesterol LDL Cholesterol Direct HDL Cholesterol Thyroxine (T4) TSH 3rd Generation 05/31/17 08:15 WBC RBC Hgb Hct MCV MCH MCHC RDW Plt Count MPV Neut % (Auto) Lymph % (Auto) [place] % (Auto) Eos % (Auto) Baso % (Auto) Neut # Lymph # [place] # Eos # Baso # Neutrophils % (Manual) Band Neutrophils % Lymphocytes % (Manual) Reactive Lymphs % Monocytes % (Manual) Platelet Estimate Sodium 139 Potassium 3.7 Chloride 103 Carbon Dioxide 24 Anion Gap 16 BUN 23 H Creatinine 0.9 Est GFR ( Amer) > 60 Est GFR (Non-Af Amer) > 60 Random Glucose 101 Calcium 8.8 Total Bilirubin 1.1 AST 31 ALT 37 Alkaline Phosphatase 77 Troponin I Total Protein 6.8 Albumin 3.7 Globulin 3.1 Albumin/Globulin Ratio 1.2 Triglycerides 40 Cholesterol 101 LDL Cholesterol Direct 31 HDL Cholesterol 49 Thyroxine (T4) 8.11 TSH 3rd Generation 0.43 L reviewed J.P. - Impressions Impression: Obstructive Serie X-Ray and Lumbar Spine X-Ray All reviewed J.P. Assessment & Plan (1) Constipation Status: Acute Priority: High (2) Schizoaffective disorder Status: Acute (3) HTN (hypertension) Status: Chronic Priority: Medium (4) Dyslipidemia Status: Chronic Priority: Low (5) GERD (gastroesophageal reflux disease) Status: Chronic Priority: Medium (6) Parkinson disease Status: Chronic Priority: Low - Assessment and Plan (Free Text) Plan: Lactulose 30 mg od, Seroquel, Dekapote and rest of Tx, Psychiatric consult, OT, PT.Patient, family want Patient to be transfered to [facility] as permanent resident. - Date & Time Date: 05/31/17 Time: 11:00
[2017-06-01] MEDS: Enoxaparin 40 mg Syringe SC SCH (09:38)
[2017-06-01] MEDS: Divalproex 125 mg DR (BID formulation) PO SCH ×3 (10:44→17:38)
[2017-06-01 11:24] LABS: URINE BILIRUBIN NEGATIVE (NEGATIVE); URINE BLOOD NEGATIVE (NEGATIVE); URINE CLARITY CLEAR (Clear); URINE COLOR YELLOW (YELLOW); URINE GLUCOSE (UA) NEG (Normal); URINE LEUKOCYTE ESTERASE NEG Leu/uL (Negative); URINE NITRATE NEGATIVE (NEGATIVE); URINE PROTEIN NEGATIVE (NEGATIVE)
--- NOTE | 2017-06-01 13:03 | CP.PCM.PN ---
Subjective - Date & Time of Evaluation Date of Evaluation: 06/01/17 Time of Evaluation: 10:30 - Subjective Subjective: F/U Constipation. Pt awake , NC , had bowel movement. Objective - Vital Signs/Intake and Output Vital Signs (last 24 hours): Temp Pulse Resp BP Pulse Ox 98.7 F 69 20 151/71 H 95 06/01/17 08:30 06/01/17 08:30 06/01/17 08:30 06/01/17 08:30 06/01/17 08:30 - Medications Medications: Current Medications Aspirin (Aspirin Chewable) 81 mg PO DAILY [facility] Last Admin: 06/01/17 09:39 Dose: 81 mg Atorvastatin Calcium (Lipitor) 10 mg PO HS [facility] Carbidopa/Levodopa (Sinemet) 1 tab PO TID [facility] Last Admin: 06/01/17 09:39 Dose: 1 tab Divalproex Sodium (Depakote Dr(*Bid*)) 125 mg PO TID [facility] Last Admin: 06/01/17 10:44 Dose: 125 mg Enoxaparin Sodium (Lovenox) 40 mg SC DAILY [facility] PRN Reason: Protocol Last Admin: 06/01/17 09:38 Dose: 40 mg Ergocalciferol (Drisdol 50,000 Intl Units Cap) 1 cap PO QWK [facility] Famotidine (Pepcid) 20 mg PO DAILY [facility] Last Admin: 06/01/17 09:38 Dose: 20 mg Quetiapine Fumarate (Seroquel) 25 mg PO HS [facility] Last Admin: 05/31/17 21:50 Dose: 25 mg - Labs Labs: 05/31/17 08:15 05/31/17 08:15 - Constitutional Appears: No Acute Distress - Head Exam Head Exam: NORMAL INSPECTION - Eye Exam Eye Exam: PERRL - ENT Exam ENT Exam: Normal Exam - Neck Exam Neck Exam: Normal Inspection - Respiratory Exam Respiratory Exam: Clear to Ausculation Bilateral - Cardiovascular Exam Cardiovascular Exam: REGULAR RHYTHM - GI/Abdominal Exam GI & Abdominal Exam: Normal Bowel Sounds - Extremities Exam Extremities Exam: Normal Inspection - Back Exam Additional comments: Kyphoscoliosis - Neurological Exam Neurological Exam: Awake Additional comments: Alert , O x 2 , unsteady gait, weakness L/E. - Psychiatric Exam Psychiatric exam: Normal Mood - Skin Skin Exam: Warm Assessment and Plan (1) Constipation Status: Acute (2) Schizoaffective disorder Status: Acute (3) HTN (hypertension) Status: Chronic (4) Dyslipidemia Status: Chronic (5) Parkinson disease Status: Chronic - Assessment and Plan (Free Text) Plan: Pt was seen and cleared for discharge home by Psychiatric knowledge management consultant with Dx. Schizoafective Disorder stable. continue Dekapote, Seroquel, Pepsid, Lactulose 30cc od, Lovenox, Lipitor, ASA and rest Of Tx. Social Service working for [facility] placement.
[2017-06-02 08:10] VITALS: RESP 20
[2017-06-02] MEDS: Enoxaparin 40 mg Syringe SC SCH (08:39)
[2017-06-02] MEDS: Divalproex 125 mg DR (BID formulation) PO SCH ×3 (08:40→16:08)
--- NOTE | 2017-06-02 09:20 | PQF GENQUE ---
This form is a permanent part of the medical record 06/02/17 Dr. Curtis, Please clarify the appropriate diagnosis for this patient: Constipation or Fecal Impaction Diagnosis 1: In the H&P body of report there is documentation of the obstructive series results which are fecal impaction. Diagnosis 2: H&P Impression Constipation Abdominal Obstructive Series: Rectal fecal impaction is appreciated up to 9 cm. Treated with Phosphate enema x 1. Clarification of your documentation is requested to better reflect the severity of illness and intensity of treatment of your patient. Indicators present [] Specify: [] [] Specify: [] [] Specify: [] [] Specify: [] Location in the medical record that reflects the above clinical findings: [] Treatment Provided: [] PHYSICIAN'S RESPONSE Based on your medical judgment of the clinical indicators outlined above please clarify the following: [] Practitioner response [] If unable to determine, please check the box, sign and date. Present On Admission (POA) Indicator: [] Present at the time of admission [] Not present at the time of admission [] Clinically Undetermined In responding to this query, please exercise your independent professional judgment. The fact that a question is asked does not imply that any particular answer is desired or expected. Thank you for your clarification on this documentation. If you have any questions please call:ext [phone] * Thank you, Madyson Merritt RN CD[facility]
--- NOTE | 2017-06-02 13:20 | CP.PCM.PN ---
Subjective - Date & Time of Evaluation Date of Evaluation: 06/02/17 - Subjective Subjective: F/U Constipation. Objective - Vital Signs/Intake and Output Vital Signs (last 24 hours): Temp Pulse Resp BP Pulse Ox 97.8 F 68 20 147/87 96 06/02/17 08:09 06/02/17 08:09 06/02/17 08:09 06/02/17 08:09 06/02/17 08:09 - Medications Medications: Current Medications Aspirin (Aspirin Chewable) 81 mg PO DAILY [facility] Last Admin: 06/02/17 08:40 Dose: 81 mg Atorvastatin Calcium (Lipitor) 10 mg PO [facility] Last Admin: 06/01/17 21:26 Dose: 10 mg Carbidopa/Levodopa (Sinemet) 1 tab PO TID [facility] Last Admin: 06/02/17 12:45 Dose: 1 tab Divalproex Sodium (Depakote Dr(*Bid*)) 125 mg PO TID [facility] Last Admin: 06/02/17 12:45 Dose: 125 mg Enoxaparin Sodium (Lovenox) 40 mg SC DAILY [facility] PRN Reason: Protocol Last Admin: 06/02/17 08:39 Dose: 40 mg Ergocalciferol (Drisdol 50,000 Intl Units Cap) 1 cap PO QWK [facility] Famotidine (Pepcid) 20 mg PO DAILY [facility] Last Admin: 06/02/17 08:41 Dose: 20 mg Quetiapine Fumarate (Seroquel) 25 mg PO [facility] Last Admin: 06/01/17 21:26 Dose: 25 mg - Labs Labs: 05/31/17 08:15 05/31/17 08:15 - Constitutional Appears: No Acute Distress - Head Exam Head Exam: NORMAL INSPECTION - Eye Exam Eye Exam: PERRL - ENT Exam ENT Exam: Normal Exam - Neck Exam Neck Exam: Normal Inspection - Respiratory Exam Respiratory Exam: Clear to Ausculation Bilateral - Cardiovascular Exam Cardiovascular Exam: REGULAR RHYTHM - GI/Abdominal Exam GI & Abdominal Exam: Soft, Normal Bowel Sounds - Extremities Exam Extremities Exam: Normal Inspection - Back Exam Additional comments: Kyphoscoliosis - Neurological Exam Neurological Exam: Awake Additional comments: O x2, unsteady gait, weakness L/E. - Skin Skin Exam: Warm Assessment and Plan (1) Constipation Status: Acute (2) Schizoaffective disorder Status: Acute (3) HTN (hypertension) Status: Chronic (4) Dyslipidemia Status: Chronic (5) Parkinson disease Status: Chronic
[2017-06-02 16:31] VITALS: O2SAT 95
[2017-06-03 06:21] LABS: HEMOGLOBIN 13.4 g/dL (12.0-18.0); MEAN CELL VOLUME 87.3 fl (80.0-94.0); MEAN CORPUSCULAR HGB CONC 33.2 g/dL (33.0-37.0); RBC 4.63 Mil/uL (4.40-5.90)
[2017-06-03 06:33] LABS: BLOOD UREA NITROGEN 20 mg/dl (9-20); CALCIUM 8.8 mg/dL (8.4-10.2); GFR AFRICAN-AMERICAN > 60; GFR NON-AFRICAN AMERICAN > 60
[2017-06-03 08:37] VITALS: BP 122/71; PULSE 69; TEMP 99.2
[2017-06-03] MEDS: Enoxaparin 40 mg Syringe SC SCH (08:58)
[2017-06-03] MEDS: Divalproex 125 mg DR (BID formulation) PO SCH ×2 (08:58→12:09)
--- NOTE | 2017-06-03 17:23 | CP.PCM.DIS ---
Provider - Provider Date of Admission: 05/31/17 04:04 Attending physician: Melvin Curtis MD Consults: Wound Care, Psychiatry and Crisis Evaluation. Time Spent in preparation of Discharge (in minutes): 35 Diagnosis - Discharge Diagnosis (1) Constipation Status: Acute Priority: High (2) Schizoaffective disorder Status: Acute (3) HTN (hypertension) Status: Chronic Priority: Medium (4) Dyslipidemia Status: Chronic Priority: Low (5) Parkinson disease Status: Chronic Priority: Low Hospital Course - Lab Results Lab Results: Most Recent Lab Values WBC 6.0 K/uL (4.8-10.8) 06/03/17 06:00 RBC 4.63 Mil/uL (4.40-5.90) 06/03/17 06:00 Hgb 13.4 g/dL (12.0-18.0) 06/03/17 06:00 Hct 40.4 % (35.0-51.0) 06/03/17 06:00 MCV 87.3 fl (80.0-94.0) 06/03/17 06:00 MCH 29.0 pg (27.0-31.0) 06/03/17 06:00 MCHC 33.2 g/dL (33.0-37.0) 06/03/17 06:00 RDW 14.0 % (11.5-14.5) 06/03/17 06:00 Plt Count 248 K/uL (130-400) 06/03/17 06:00 MPV 9.1 fl (7.2-11.7) 05/31/17 08:15 Neut % (Auto) 79.3 % (50.0-75.0) H 05/31/17 08:15 Lymph % (Auto) 7.3 % (20.0-40.0) L 05/31/17 08:15 [place] % (Auto) 12.6 % (0.0-10.0) H 05/31/17 08:15 Eos % (Auto) 0.6 % (0.0-4.0) 05/31/17 08:15 Baso % (Auto) 0.2 % (0.0-2.0) 05/31/17 08:15 Neut # 7.4 K/uL (1.8-7.0) H 05/31/17 08:15 Lymph # 0.7 K/uL (1.0-4.3) L 05/31/17 08:15 [place] # 1.2 K/uL (0.0-0.8) H 05/31/17 08:15 Eos # 0.1 K/uL (0.0-0.7) 05/31/17 08:15 Baso # 0.0 K/uL (0.0-0.2) 05/31/17 08:15 Neutrophils % (Manual) 87 % (42-75) H 05/30/17 22:40 Band Neutrophils % 1 % (0-2) 05/30/17 22:40 Lymphocytes % (Manual) 4 % (20-50) L 05/30/17 22:40 Reactive Lymphs % 2 % (0-0) H 05/30/17 22:40 Monocytes % (Manual) 6 % (0-10) 05/30/17 22:40 Platelet Estimate Normal (NORMAL) 05/30/17 22:40 Sodium 138 mmol/l (132-148) 06/03/17 06:00 Potassium 4.0 MMOL/L (3.6-5.0) 06/03/17 06:00 Chloride 103 mmol/L (98-107) 06/03/17 06:00 Carbon Dioxide 23 mmol/L (22-30) 06/03/17 06:00 Anion Gap 16 (10-20) 06/03/17 06:00 BUN 20 mg/dl (9-20) 06/03/17 06:00 Creatinine 0.9 mg/dl (0.8-1.5) 06/03/17 06:00 Est GFR ( Amer) > 60 06/03/17 06:00 Est GFR (Non-Af Amer) > 60 06/03/17 06:00 Random Glucose 89 mg/dL (75-110) 06/03/17 06:00 Calcium 8.8 mg/dL (8.4-10.2) 06/03/17 06:00 Total Bilirubin 1.1 mg/dl (0.2-1.3) 05/31/17 08:15 AST 31 U/L (17-59) 05/31/17 08:15 ALT 37 U/L (21-72) 05/31/17 08:15 Alkaline Phosphatase 77 U/L (38-126) 05/31/17 08:15 Troponin I 0.0190 ng/mL (0.00-0.120) 05/30/17 22:40 Total Protein 6.8 G/DL (6.3-8.2) 05/31/17 08:15 Albumin 3.7 g/dL (3.5-5.0) 05/31/17 08:15 Globulin 3.1 gm/dL (2.2-3.9) 05/31/17 08:15 Albumin/Globulin Ratio 1.2 (1.0-2.1) 05/31/17 08:15 Triglycerides 40 mg/DL (0-149) 05/31/17 08:15 Cholesterol 101 mg/dL (0-199) 05/31/17 08:15 LDL Cholesterol Direct 31 mg/dL (0-129) 05/31/17 08:15 HDL Cholesterol 49 MG/DL (30-70) 05/31/17 08:15 Thyroxine (T4) 8.11 ug/dl (5.5-11.0) 05/31/17 08:15 TSH 3rd Generation 0.43 mIU/ML (0.46-4.68) L 05/31/17 08:15 Urine Color Yellow (YELLOW) 06/01/17 11:13 Urine Clarity Clear (Clear) 06/01/17 11:13 Urine pH 7.0 (5.0-8.0) 06/01/17 11:13 Ur Specific [place] 1.010 (1.003-1.030) 06/01/17 11:13 Urine Protein Negative mg/dL (NEGATIVE) 06/01/17 11:13 Urine Glucose (UA) Neg mg/dL (Normal) 06/01/17 11:13 Urine Ketones Trace mg/dL (NEGATIVE) 06/01/17 11:13 Urine Blood Negative (NEGATIVE) 06/01/17 11:13 Urine Nitrate Negative (NEGATIVE) 06/01/17 11:13 Urine Bilirubin Negative (NEGATIVE) 06/01/17 11:13 Urine Urobilinogen 2.0 mg/dL (0.2-1.0) 06/01/17 11:13 Ur Leukocyte Esterase Neg Jennifer/uL (Negative) 06/01/17 11:13 Urine RBC (Auto) < 1 /hpf (0-3) 06/01/17 11:13 Urine Microscopic WBC 1 /hpf (0-5) 06/01/17 11:13 - Date & Time of H&P Date of H&P: 05/31/17 Time of H&P: 11:00 Discharge Exam - Head Exam Head Exam: NORMAL INSPECTION - Eye Exam Eye Exam: PERRL - ENT Exam ENT Exam: Normal Exam - Neck Exam Neck exam: Normal Inspection - Respiratory Exam Additional comments: Clear to auscultation bilateral. - Cardiovascular Exam Cardiovascular Exam: REGULAR RHYTHM - GI/Abdominal Exam GI & Abdominal Exam: Normal Bowel Sounds, Soft - Extremities Exam Extremities exam: normal inspection - Back Exam Additional comments: Kyphoscoliosis. - Neurological Exam Additional comments: Awake, O x2, unsteady gait, weakness L/E. - Skin Skin Exam: Warm Discharge Plan - Follow Up Plan Condition: STABLE Disposition: TRANSF TO SNF Instructions: Constipation (ED), Constipation (DC), Altered Mental Status (GEN) Additional Instructions: Return if not better in 3 days. Referrals: [facility] [Outside] - 06/01/17
== END 2017-06-03 13:50 | DRG 390 ==
LOC: H.ER 21:15 → H.ERHOLD 05-31 04:04 → OBSVTOIN 05-31 04:04 → H.MEDSURG1 05-31 05:56
PROVIDERS: ADMIT Internal Medicine Pulmonary Disease; ATTEND Internal Medicine Pulmonary Disease
PROC: 3E0234Z Introduction of Serum, Toxoid and Vaccine into Muscle, Percutaneous Approach (ICD-10-PCS; principal; 2017-05-31)
DX: K56.41 Fecal impaction (principal); G20 Parkinson's disease; F25.9 Schizoaffective disorder, unspecified; K21.9 Gastro-esophageal reflux disease without esophagitis; M41.85 Other forms of scoliosis, thoracolumbar region; E78.5 Hyperlipidemia, unspecified; I10 Essential (primary) hypertension; Z23 Encounter for immunization; F32.9 Major depressive disorder, single episode, unspecified

== ENCOUNTER 2018-02-06 03:57 | Emergency (ER) | payer MEDICARE, OTHER ==
[2018-02-06 04:08] VITALS: TEMP 98.2; O2SAT 98
[2018-02-06 04:40] LABS: HEMOGLOBIN 15.1 g/dL (12.0-18.0); MEAN CORPUSCULAR HEMOGLOBIN 30.4 pg (27.0-31.0); MEAN CORPUSCULAR HGB CONC 34.2 g/dL (33.0-37.0); RBC 4.96 Mil/uL (4.40-5.90); RED CELL DISTRIBUTION WIDTH 13.8 % (11.5-14.5); WHITE BLOOD COUNT 5.9 K/uL (4.8-10.8)
[2018-02-06 04:46] LABS: BLOOD UREA NITROGEN 20 mg/dl (9-20); CALCIUM 9.2 mg/dL (8.4-10.2); GFR NON-AFRICAN AMERICAN > 60
--- NOTE | 2018-02-06 05:08 | ED PDOC ---
HPI: Altered Mental Status Time Seen by Provider: 02/06/18 04:08 Chief Complaint (Nursing): Weakness/Neurological Deficit Past Medical History Vital Signs: Last Vital Signs Temp 98.2 F 02/06/18 04:06 Pulse 76 02/06/18 04:06 Resp 16 02/06/18 04:06 BP 150/90 02/06/18 04:06 Pulse Ox 98 02/06/18 04:06 - Medical History PMH: Depression, HTN, Hypercholesterolemia, Hyperlipidemia, Parkinson's Disease, Schizophrenia Denies: Diabetes, Hepatitis, HIV, Chronic Kidney Disease, Seizures, Sexually Transmitted Disease - Family History Family History: States: Unknown Family Hx - Home Medications Home Medications: Ambulatory Orders Medication Instructions Recorded Aspirin [Aspirin Chewable] 81 mg PO DAILY #30 chew 03/01/17 Atorvastatin [Lipitor] 10 mg PO DAILY #30 tab 03/01/17 Carbidopa/Levodopa 1 tab PO TID #90 tablet 03/01/17 [Carbidopa-Levodopa 25-100 Tab] Famotidine [Pepcid] 20 mg PO DAILY #30 tab 03/01/17 QUEtiapine [Seroquel] 25 mg PO HS #30 tab 03/01/17 Ergocalciferol [Drisdol 50,000 1 cap PO QWK cap 03/03/17 Intl Units Cap] Divalproex [Depakote DR(*BID*)] 125 mg PO TID 05/31/17 - Allergies Allergies/Adverse Reactions: Allergies Allergy/AdvReac Type Severity Reaction Status Date / Time No Known Allergies Allergy Verified 06/23/14 16:38 - Laboratory Results Result Diagrams: 02/06/18 04:29 02/06/18 04:29 - ECG O2 Sat by Pulse Oximetry: 98 Disposition - Disposition
--- NOTE | 2018-02-06 05:15 | ED PDOC ---
HPI: Psych/Substance Abuse Time Seen by Provider: 02/06/18 04:08 Chief Complaint (Nursing): Weakness/Neurological Deficit Chief Complaint (Provider): Agitation Associated Symptoms: Anxiety Additional History Per: Custodial Additional Complaint(s): Kevin Govea is a 77 year old male with a history of schizoaffective disorder Parkinson disease, depression, hyperlipidemia, hypercholesterolemia, and hypertension, who was brought to the emergency department by EMS with an episode of agitation experienced at retirement. The retirement further states that he became anxious and had chest pain at the time, while EMS states he was complaining of tongue pain. Patient currently states he has no symptoms and that he gets full quickly when he eats. Patient is requesting blood work at this time. PMD: No Family Provider Past Medical History Reviewed: Historical Data, Nursing Documentation, Vital Signs Vital Signs: Last Vital Signs Temp 98.2 F 02/06/18 04:06 Pulse 76 02/06/18 04:06 Resp 16 02/06/18 04:06 BP 150/90 02/06/18 04:06 Pulse Ox 98 02/06/18 05:08 - Medical History PMH: Depression, HTN, Hypercholesterolemia, Hyperlipidemia, Parkinson's Disease, Schizophrenia Denies: Diabetes, Hepatitis, HIV, Chronic Kidney Disease, Seizures, Sexually Transmitted Disease - Surgical History Surgical History: No Surg Hx - Family History Family History: States: Unknown Family Hx - Living Arrangements Living Arrangements: Custodial/Assist [facility] - Social History Current smoker - smoking cessation education provided: No (Never Smoked) Alcohol: None Drugs: Denies - Home Medications Home Medications: Ambulatory Orders Medication Instructions Recorded Aspirin [Aspirin Chewable] 81 mg PO DAILY #30 chew 03/01/17 Atorvastatin [Lipitor] 10 mg PO DAILY #30 tab 03/01/17 Carbidopa/Levodopa 1 tab PO TID #90 tablet 03/01/17 [Carbidopa-Levodopa 25-100 Tab] Famotidine [Pepcid] 20 mg PO DAILY #30 tab 03/01/17 QUEtiapine [Seroquel] 25 mg PO HS #30 tab 03/01/17 Ergocalciferol [Drisdol 50,000 1 cap PO QWK cap 03/03/17 Intl Units Cap] Divalproex [Depakote DR(*BID*)] 125 mg PO TID 05/31/17 - Allergies Allergies/Adverse Reactions: Allergies Allergy/AdvReac Type Severity Reaction Status Date / Time No Known Allergies Allergy Verified 06/23/14 16:38 Review of Systems ROS Statement: Except As Marked, All Systems Reviewed And Found Negative ENT: Positive for: Other (Tongue pain) Cardiovascular: Positive for: Chest Pain Psych: Positive for: Other (Agitation) Physical Exam - Reviewed Nursing Documentation Reviewed: Yes Vital Signs Reviewed: Yes - Physical Exam Appears: Positive for: Well, No Acute Distress Head Exam: Positive for: ATRAUMATIC, NORMOCEPHALIC Skin: Positive for: Normal Color, Warm, Dry Eye Exam: Positive for: Normal appearance, EOMI, PERRL ENT: Positive for: Normal ENT Inspection Neck: Positive for: Normal, Painless ROM, Supple Cardiovascular/Chest: Positive for: Regular Rate, Rhythm. Negative for: Murmur Respiratory: Positive for: Normal Breath Sounds. Negative for: Respiratory Distress Gastrointestinal/Abdominal: Positive for: Normal Exam, Bowel Sounds, Soft. Negative for: Tenderness Back: Positive for: Normal Inspection. Negative for: L CVA Tenderness, R CVA Tenderness, Vertebral Tenderness Extremity: Positive for: Normal ROM (Upper and lower extremities). Negative for: Tenderness, Calf Tenderness, Deformity, Swelling Neurologic/Psych: Positive for: Alert, Oriented (x3), Mood/Affect (Strange). Negative for: Motor/Sensory Deficits - Laboratory Results Result Diagrams: 02/06/18 04:29 02/06/18 04:29 - ECG O2 Sat by Pulse Oximetry: 98 (RA) Pulse Ox Interpretation: Normal Medical Decision Making Medical Decision Making: Initial Time: 04:08 A/P: 77 year old patient is presenting multiple complaints. Patient is currently well in appearance and calm with normal vitals. Patient has requested blood work for nonspecific conditions. Provider will check lab work and likely anticipates to discharge back to retirement. 615AM --Labs negative --EKG nonischemic --CXR normal --Advised patient that he should return to [place] --Well appearing with negative workup Scribe Attestation: Documented by Calvin Holder, acting as a scribe for Brett Jensen MD Provider Scribe Attestation: All medical record entries made by the Scribe were at my direction and personally dictated by me. I have reviewed the chart and agree that the record accurately reflects my personal performance of the history, physical exam, medical decision making, and the department course for this patient. I have also personally directed, reviewed, and agree with the discharge instructions and disposition. Disposition - Clinical Impression Clinical Impression: Schizoaffective disorder - Disposition Referrals: Melvin Curtis MD [Staff Provider] - Disposition: [facility] Disposition Time: 06:15 Condition: STABLE Instructions: Schizoaffective Disorder Forms: [employer] (Lebanese)
[2018-02-06 07:51] VITALS: BP 142/81; PULSE 70; RESP 18
--- NOTE | 2018-02-06 08:53 | CARD ---
APPROVED REPORT Date of service: 02/06/2018 EKG Measurement Heart [id number] <Conclusion> Sinus rhythm with 1st degree AV block Low voltage QRS Septal infarct, age undetermined Abnormal ECG
--- NOTE | 2018-02-06 11:48 | RAD ---
Date of service: 02/06/2018 HISTORY: cp COMPARISON: Frontal chest radiograph 02/24/2017. FINDINGS: LUNGS: Fibrotic changes are seen at left lung base once again. No airspace disease identified bilaterally. PLEURA: No significant pleural effusion identified, no pneumothorax apparent. CARDIOVASCULAR: Normal. OSSEOUS STRUCTURES: No significant abnormalities. VISUALIZED UPPER ABDOMEN: Normal. OTHER FINDINGS: None. IMPRESSION: No interval acute cardiopulmonary disease appreciated. Limited fibrosis reiterated left base.
== END 2018-02-06 07:55 | disposition home or self-care (01) ==
LOC: H.ER 03:57
DX: F20.9 Schizophrenia, unspecified (principal); E78.00 Pure hypercholesterolemia, unspecified; G20 Parkinson's disease; I10 Essential (primary) hypertension